=== PATIENT | male | born 1955 | race Caucasian/White ===

== ENCOUNTER 2020-04-28 11:04 | Inpatient (IN) | payer MEDICARE, OTHER ==
[~2020-04-28] VITALS: Ht 170.2 cm; Wt 78.7 kg
[2020-04-28] MEDS ORDERED: NORVASC5 MG ORAL (11:07)
[2020-04-28] MEDS ORDERED: LIPITOR40 MG ORAL (11:07)
[2020-04-28] MEDS ORDERED: LOSARTAN POTASS50 MG ORAL (11:07)
[2020-04-28] MEDS ORDERED: ASPIRIN EC81 MG ORAL (11:07)
[2020-04-28] MEDS ORDERED: NEURONTIN100 MG ORAL (11:07)
[2020-04-28] MEDS ORDERED: vitamin b12 PO (11:13)
[2020-04-28] MEDS ORDERED: ZINC SULFATE220 M1 ORAL (11:13)
[2020-04-28] MEDS ORDERED: FLOMAX0.4 MG ORAL (11:13)
[2020-04-28] MEDS ORDERED: HEPARIN SO5000 UNIT2 SUBQ (11:13)
[2020-04-28] MEDS ORDERED: VITAMIN C500 M1 ORAL (11:13)
[2020-04-28] MEDS ORDERED: VITAMIN D32400 UNIT/ PO (11:18)
[2020-04-28] MEDS ORDERED: PERIDEX15 ML MM (11:18)
[2020-04-28] MEDS ORDERED: CELEXA20 MG ORAL (11:21)
[2020-04-28] MEDS ORDERED: ZYPREXA10 MG ORAL (11:21)
[2020-04-28] MEDS ORDERED: ALBUTEROL SULF8.5 G1 INH (11:21)
[2020-04-28] MEDS ORDERED: HUMULIN R100 UNIT/1 SUBQ (11:21)
[2020-04-28] MEDS ORDERED: MELATONIN 3 MG1 EAC1 PO (11:21)
[2020-04-28] MEDS ORDERED: HUMALOG SS (11:23)
[2020-04-28 11:30] VITALS: BP 124/68
[2020-04-28] MEDS ORDERED: Pantoprazole Inj IV ONE (11:45)
--- NOTE | 2020-04-28 11:45 | NUR ---
ED Nurse Note: Pt BIBA from [facility] for GI bleed. Pt had coffee ground emesis yesterday. Pt is alert and ox4, bedrest. pt is set up on monitor. Abdomen is non-distended. Pt not currently actively vomiting.
--- NOTE | 2020-04-28 11:57 | Emergency Room Report ---
History of Present Illness General Chief Complaint: Gastrointestinal Bleed Source: Patient, Medical Record, EMS Present Illness HPI 64-year-old male presents for evaluation. Presents with coffee-ground emesis multiple times today. [facility] No active vomiting at this time. Patient does not recall vomiting. History of psych. Per EMS patient is also tested COVID positive this month. Patient has no symptoms. No reported fevers or chills. No runny nose congestion or cough. No blood in stool. No other aggravating relieving factors. 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 COVID-19 Screening: Positive COVID-19 COVID-19 Testing Source: Unknown Patient History Past Medical History: DM, HTN, GI bleed, psych hx Pertinent Family History: none Social History: Denies: smoking, alcohol use, drug use Immunizations: UTD Reviewed Nursing Documentation: PMH: Agreed; PSxH: Agreed Nursing Documentation-PMH Hx Hypertension: Yes Hx Diabetes: Yes Hx Gastrointestinal Problems: Yes - gastrointestinal hemorrhage History Of Psychiatric Problem: Yes - Schizophrenia, major depression Hx Neurological Problems: Yes - lack of coordination Review of Systems All Other Systems: negative except mentioned in HPI Physical Exam Vital Signs Date Time Temp Pulse Resp B/P (MAP) Pulse Ox O2 Delivery O2 Flow Rate FiO2 04/28/20 11:16 96.8 67 14 127/71 (89) 99 Room Air Sp02 EP Interpretation: reviewed, normal General Appearance: no apparent distress, alert, GCS 15, non-toxic Head: normocephalic, atraumatic Eyes: bilateral eye normal inspection, bilateral eye PERRL ENT: hearing grossly normal, normal pharynx, no angioedema, normal voice Neck: full range of motion, supple/symm/no masses Respiratory: chest non-tender, lungs clear, normal breath sounds, speaking full sentences Cardiovascular #1: regular rate, rhythm, no edema Cardiovascular #2: 2+ carotid (R), 2+ carotid (L), 2+ radial (R), 2+ radial (L) , 2+ dorsalis pedis (R), 2+ dorsalis pedis (L) Gastrointestinal: normal bowel sounds, non tender, soft, non-distended, no guarding, no rebound Rectal: deferred Genitourinary: normal inspection, no CVA tenderness Musculoskeletal: back normal, normal range of motion, gait/station normal, non- tender Neurologic: alert, motor strength/tone normal, oriented x3, sensory intact, responsive, speech normal Psychiatric: judgement/insight normal, memory normal, mood/affect normal, no suicidal/homicidal ideation Reflexes: 3+ bicep (R), 3+ bicep (L), 3+ tricep (R), 3+ tricep (L), 3+ knee (R) , 3+ knee (L) Skin: other - see nursing skin notes Lymphatic: no adenopathy Medical Decision Making Diagnostic Impression: Primary Impression: UGIB (upper gastrointestinal bleed) Additional Impressions: COVID-19 UTI (urinary tract infection) Qualified Codes: N39.0 - Urinary tract infection, site not specified ER Course Hospital Course 64-year-old male presents with coffee-ground emesis. COVID positive Differential diagnoses include: UGIB, LGIB, hemorrhoids Clinical course Patient placed on stretcher. panel monitor. In isolation. I wore full PPE. After initial history and physical I ordered labs, IV fluids, x-ray, Protonix , Zofran Labs - no leukocytosis, Hb/Hct stable. BUN/Cr elevated. UA + bacteria CXR - no focal consolidation Repeat COVID swab sent. Given antibiotics. Case discussed with Dr. Leal and he agreed to accept the patient to his service for further care and support I feel this is a highly complex case requiring extensive working including EKG/ Rhythm strip, Xray/CT/US, Blood/urine lab work, repeat exams while in ED, and administration of strong opiates/narcotics for pain control, admission to hospital or close patient follow up. Diagnosis - UGIB, COVID19, UTI Patient admitted to floor in serious condition Labs Test 04/28/20 11:52 04/28/20 11:59 04/28/20 12:03 White Blood Count 7.3 K/UL (4.8-10.8) Red Blood Count 4.57 M/UL (4.70-6.10) Hemoglobin 12.7 G/DL (14.2-18.0) Hematocrit 39.9 % (42.0-52.0) Mean Corpuscular Volume 87 FL (80-99) Mean Corpuscular Hemoglobin 27.8 PG (27.0-31.0) Mean Corpuscular Hemoglobin Concent 31.8 G/DL (32.0-36.0) Red Cell Distribution Width 13.8 % (11.6-14.8) Platelet Count 180 K/UL (150-450) Mean Platelet Volume 6.8 FL (6.5-10.1) Neutrophils (%) (Auto) 77.0 % (45.0-75.0) Lymphocytes (%) (Auto) 14.2 % (20.0-45.0) Monocytes (%) (Auto) 7.5 % (1.0-10.0) Eosinophils (%) (Auto) 0.1 % (0.0-3.0) Basophils (%) (Auto) 1.0 % (0.0-2.0) Prothrombin Time 12.0 SEC (9.30-11.50) Prothromb Time International Ratio 1.1 (0.9-1.1) Activated Partial Thromboplast Time 26 SEC (23-33) Sodium Level 141 MMOL/L (136-145) Potassium Level 4.6 MMOL/L (3.5-5.1) Chloride Level 103 MMOL/L (98-107) Carbon Dioxide Level 33 MMOL/L (21-32) Anion Gap 5 mmol/L (5-15) Blood Urea Nitrogen 40 mg/dL (7-18) Creatinine 2.1 MG/DL (0.55-1.30) Estimat Glomerular Filtration Rate 31.8 mL/min (>60) Glucose Level 159 MG/DL (74-106) Calcium Level 9.6 MG/DL (8.5-10.1) Total Bilirubin 0.9 MG/DL (0.2-1.0) Aspartate Amino Transf (AST/SGOT) 27 U/L (15-37) Alanine Aminotransferase (ALT/SGPT) 32 U/L (12-78) Alkaline Phosphatase 69 U/L (46-116) Total Protein 7.7 G/DL (6.4-8.2) Albumin 3.5 G/DL (3.4-5.0) Globulin 4.2 g/dL Albumin/Globulin Ratio 0.8 (1.0-2.7) Lipase 302 U/L (73-393) Lactic Acid Level 1.50 mmol/L (0.4-2.0) Urine Color Yellow Urine Appearance Slightly cloudy Urine pH 6.5 (4.5-8.0) Urine Specific [place] 1.010 (1.005-1.035) Urine Protein 1+ (NEGATIVE) Urine Glucose (UA) Negative (NEGATIVE) Urine Ketones Negative (NEGATIVE) Urine Blood 1+ (NEGATIVE) Urine Nitrite Negative (NEGATIVE) Urine Bilirubin Negative (NEGATIVE) Urine Urobilinogen 4 MG/DL (0.0-1.0) Urine Leukocyte Esterase 3+ (NEGATIVE) Urine RBC 2-4 /HPF (0 - 0) Urine WBC 60-80 /HPF (0 - 0) Urine Squamous Epithelial Cells Occasional /LPF Urine Bacteria Occasional /HPF (NONE) Chest X-Ray Diagnostic Results Chest X-Ray Diagnostic Results : Chest X-Ray Ordered: Yes # of Views/Limited/Complete: 1 View Indication: Other EP Interpretation: Yes Interpretation: no consolidation, no effusion, no pneumothorax, no acute cardiopulmonary disease Impression: No acute disease Electronically Signed by: Electronically signed by Bassam Gudino MD Last Vital Signs Date Time Temp Pulse Resp B/P (MAP) Pulse Ox O2 Delivery O2 Flow Rate FiO2 04/28/20 11:16 96.8 67 14 127/71 (89) 99 Room Air Status: improved Disposition: ADMITTED INPATIENT Condition: Serious Bassam Gudino MD Apr 28, 2020 11:57
[2020-04-28 12:12] LABS: EOSINOPHILS % (AUTO) 0.1 % (0.0-3.0); HEMATOCRIT 39.9 % (42.0-52.0); HEMOGLOBIN 12.7 G/DL (14.2-18.0); LYMPHOCYTES % (AUTO) 14.2 % (20.0-45.0); MEAN CORPUSCULAR VOLUME 87 FL (80-99); MONOCYTES % (AUTO) 7.5 % (1.0-10.0); PLATELET COUNT 180 K/UL (150-450); RED BLOOD COUNT 4.57 M/UL (4.70-6.10); RED CELL DISTRIBUTION WIDTH 13.8 % (11.6-14.8); WHITE BLOOD COUNT 7.3 K/UL (4.8-10.8)
[2020-04-28 12:22] LABS: INR 1.1 (0.9-1.1)
[2020-04-28 12:27] LABS: ANION GAP 5 mmol/L (5-15); BLOOD UREA NITROGEN 40 mg/dL (7-18); CALCIUM 9.6 MG/DL (8.5-10.1); CARBON DIOXIDE 33 MMOL/L (21-32); CHLORIDE 103 MMOL/L (98-107); CREATININE 2.1 MG/DL (0.55-1.30); POTASSIUM 4.6 MMOL/L (3.5-5.1); SODIUM 141 MMOL/L (136-145)
[2020-04-28 12:42] LABS: ALANINE AMINOTRANSFERASE 32 U/L (12-78); ALBUMIN 3.5 G/DL (3.4-5.0); ALBUMIN/GLOBULIN RATIO 0.8 (1.0-2.7); ALKALINE PHOSPHATASE 69 U/L (46-116); ASPARTATE AMINO TRANSFERASE 27 U/L (15-37); BILIRUBIN,TOTAL 0.9 MG/DL (0.2-1.0)
[2020-04-28 12:57] LABS: APPEARANCE,URINE SLIGHTLY CLOUDY; BILIRUBIN, URINE NEGATIVE (NEGATIVE); COLOR,URINE YELLOW; GLUCOSE, URINE (UA) NEGATIVE (NEGATIVE); KETONES,URINE NEGATIVE (NEGATIVE); LEUKOCYTE ESTERASE ,URINE 3+ (NEGATIVE); NITRITE,URINE NEGATIVE (NEGATIVE); PH,URINE 6.5 (4.5-8.0); PROTEIN,URINE 1+ (NEGATIVE); UROBILINOGEN,URINE 4 MG/DL (0.0-1.0)
[2020-04-28 13:19] VITALS: BP 122/67
[2020-04-28] MEDS ORDERED: cefTRIAXone 1 GM in NS 55 ML IVPB ONE (13:30)
--- NOTE | 2020-04-28 13:39 | Diagnostic Imaging Report ---
Procedure: XRAY Chest 1v Reason for study: Reason For Exam: COUGH Comparison films: None. FINDINGS: A single one view chest is obtained. Vascularity is normal. The lung steiner are clear bilaterally. Cardiac and mediastinal silhouette are within normal limits. CP angles are sharp. The bony thorax appear unremarkable. IMPRESSION: NO ACUTE CARDIOPULMONARY DISEASE.
--- NOTE | 2020-04-28 14:00 | NUR ---
NURSE NOTES: patient was admitted to room 420-2 under care dx of GI bleeding. episode of bloody emesis at detention. no respiratory distress noted on room air. no pain at this time. A&Ox4. verbally responsive. IV on right hand. intact. Covid swab done at ER. PUI contact/droplet isolation. head to toe assessment done. redness on sacra and perianal area. incontinent both B&B. wound picture taken and uploaded. skin scratches with dry scab both lower extremities. notified Dr. Leal for new admission. will f/u for new admission orders. bed in the lowest position and locked. call light within reach. will continue to provide plan of care.
--- NOTE | 2020-04-28 15:31 | NUR ---
ED Nurse Note: Report given to Manohar CHRISTENSEN.
[2020-04-28 15:33] VITALS: BP 130/64
--- NOTE | 2020-04-28 15:40 | NUR ---
ED Nurse Note: Pt transferred to [facility] floor with all belongings. No acute distress.
--- NOTE | 2020-04-28 16:26 | Consultation ---
Consult Note Consult Note I am asked to evaluate the patient at the request of Dr. Leal for renal failure 64-year-old male presents for evaluation. Presents with coffee-ground emesis multiple times today. Coming from [facility] facility. No active vomiting at this time. Patient does not recall vomiting. History of psych. Per EMS patient is also tested COVID positive this month. Patient has no symptoms. No reported fevers or chills. No runny nose congestion or cough. No blood in stool. No other aggravating relieving factors. 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 COVID-19 Screening: Positive COVID-19 COVID-19 Testing Source: Unknown Past Medical History: DM, HTN, GI bleed, psych hx Hx Hypertension: Yes Hx Diabetes: Yes Hx Gastrointestinal Problems: Yes - gastrointestinal hemorrhage History Of Psychiatric Problem: Yes - Schizophrenia, major depression Hx Neurological Problems: Yes - lack of coordination Patient interviewed, poor historian Examined Data reviewed Assessment/Plan Renal failure most likely acute on chronic Contributors to chronic kidney disease are diabetes mellitus and hypertension Patient is being admitted with GI bleed Evidence of UTI COVID-19 positive Hypertension Diabetes mellitus History of psych disease N.p.o. except medication Monitor for further upper GI bleed Monitor H&H IV Protonix Slow hydration Keep the blood pressure blood sugar in check Avoid nephrotoxic's Monitor renal parameters Urine studies Antibiotics for UTI Per orders Christophe Mccray MD Apr 28, 2020 16:26
[2020-04-28] MEDS ORDERED: HydrALAZINE 25mg tab ORAL PRN (16:45)
[2020-04-28] MEDS: D5 1/2NS 1,000 ML IV SCH (17:44)
[2020-04-28] MEDS: Docusate 100mg cap ORAL SCH (17:45)
--- NOTE | 2020-04-28 19:35 | NUR ---
HAND-OFF: Report given to AMPARO Ghotra..
--- NOTE | 2020-04-28 19:59 | NUR ---
NURSE NOTES: Received report from AMPARO Villela. AAO x 3, on room air, using urinal. Pt on NPO. IV site intact and running IVF. PUI Covid precaution maintained. Bed locked, lowest position, alarm on, side rails up, call light within reach. Will continue to monitor.
[2020-04-28 20:00] VITALS: BP 149/79
[2020-04-28] MEDS: Atorvastatin 20mg tab ORAL SCH (20:30)
[2020-04-28] MEDS: Pantoprazole Inj IVP SCH (20:30)
[2020-04-28] MEDS: Tamsulosin 0.4mg cap ORAL SCH (20:30)
--- NOTE | 2020-04-28 21:37 | NUR ---
NURSE NOTES: Pt has fever 100.5F. Notified Dr. Alec Stock and Dr. Leal. Received order Tylenol 500mg po q4h prn fever 100.5F
[2020-04-28] MEDS ORDERED: Acetaminophen 500mg (ES) tab ORAL PRN (21:45)
--- NOTE | 2020-04-28 22:00 | NUR ---
NURSE NOTES: Urine collect for random sodium and sent to the lab
[2020-04-29] VITALS: BP 138/76
[2020-04-29] MEDS: D5 1/2NS 1,000 ML IV SCH ×2 (03:24→17:25)
[2020-04-29 04:00] VITALS: BP 138/76
[2020-04-29 06:21] LABS: BASOPHILS % (AUTO) 0.5 % (0.0-2.0); EOSINOPHILS % (AUTO) 0.1 % (0.0-3.0); HEMATOCRIT 36.8 % (42.0-52.0); HEMOGLOBIN 11.6 G/DL (14.2-18.0); LYMPHOCYTES % (AUTO) 15.8 % (20.0-45.0); MEAN CORPUSCULAR VOLUME 87 FL (80-99); MONOCYTES % (AUTO) 10.1 % (1.0-10.0); NEUTROPHILS % (AUTO) 73.5 % (45.0-75.0); PLATELET COUNT 134 K/UL (150-450); RED BLOOD COUNT 4.22 M/UL (4.70-6.10); RED CELL DISTRIBUTION WIDTH 14.1 % (11.6-14.8); WHITE BLOOD COUNT 6.5 K/UL (4.8-10.8)
--- NOTE | 2020-04-29 07:09 | NUR ---
NURSE NOTES: Received covid swab positiveres Addendum: 04/29/20 at 0710 by SIMON CALDERON RN RN positive result from [facility].
--- NOTE | 2020-04-29 07:10 | NUR ---
HAND-OFF: Report given to AMPARO Alonzo. Pt has no vomiting episode during the overnight babysitter.
[2020-04-29 07:32] LABS: ALANINE AMINOTRANSFERASE 26 U/L (12-78); ALBUMIN/GLOBULIN RATIO 0.8 (1.0-2.7); ALKALINE PHOSPHATASE 60 U/L (46-116); ANION GAP 7 mmol/L (5-15); ASPARTATE AMINO TRANSFERASE 23 U/L (15-37); BILIRUBIN,TOTAL 0.8 MG/DL (0.2-1.0); BLOOD UREA NITROGEN 29 mg/dL (7-18); CALCIUM 8.9 MG/DL (8.5-10.1); CARBON DIOXIDE 29 MMOL/L (21-32); CHLORIDE 105 MMOL/L (98-107); CHOLESTEROL 91 MG/DL (< 200); CREATINE KINASE 38 U/L (26-308); CREATININE 1.7 MG/DL (0.55-1.30); FERRITIN 158 NG/ML (8-388); GAMMA GLUTAMYL TRANSPEPTIDASE 10 U/L (5-85); HDL CHOLESTEROL 29 MG/DL (40-60); PHOSPHORUS 2.8 MG/DL (2.5-4.9); POTASSIUM 4.6 MMOL/L (3.5-5.1); SODIUM 141 MMOL/L (136-145); TRIGLYCERIDES 111 MG/DL (30-150)
[2020-04-29 07:52] LABS: % IRON SATURATION 20 % (15-50); IRON 43 ug/dL (50-175); TOTAL IRON BINDING CAPACITY 211 ug/dL (250-450)
--- NOTE | 2020-04-29 07:58 | NUR ---
NURSE NOTES: Received report from AMPARO Ghotra. Patient is AAO x 3, bedrest, on room air, using urinal. Pt on NPO except ice chips and med. IV site intact and running IVF. PUI Covid precaution maintained. Bed locked, lowest position, alarm on, side rails up, call light within reach. Will continue to monitor.
[2020-04-29 08:00] VITALS: BP 134/78
[2020-04-29] MEDS: Pantoprazole Inj IVP SCH ×2 (08:59→21:05)
[2020-04-29] MEDS: Docusate 100mg cap ORAL SCH ×3 (08:59→17:25)
[2020-04-29] MEDS: cefTRIAXone 1 GM in D5W 55 ML IVPB SCH (09:03)
--- NOTE | 2020-04-29 09:35 | Consultation ---
History of Present Illness General Chief Complaint: Gastrointestinal Bleed Present Illness Allergies: Coded Allergies: No Known Allergies (Unverified , 04/28/20) Medication History Scheduled Albuterol Sulfate* (Albuterol Sulfate Hfa*), 2 PUFF INH Q4H, (Reported) Amlodipine Besylate (Norvasc), 5 MG ORAL DAILY, (Reported) Ascorbic Acid* (Vitamin C*), 1,000 MG ORAL DAILY, (Reported) Aspirin Ec* (Aspirin Ec*), 81 MG ORAL DAILY, (Reported) Atorvastatin Calcium* (Lipitor*), 40 MG ORAL BEDTIME, (Reported) Chlorhexidine Gluconate (Peridex), 15 ML MM BID, (Reported) Cholecalciferol (Vitamin D3) (Vitamin D3), 5,000 UNIT PO DAILY, (Reported) Citalopram Hydrobromide* (Celexa*), 20 MG ORAL DAILY, (Reported) Gabapentin* (Neurontin*), 100 MG ORAL BID, (Reported) Heparin Sod (Porcine) (Heparin Sodium*), 5,000 UNITS SUBQ EVERY 12 HOURS, ( Reported) Losartan Potassium* (Losartan Potassium*), 50 MG ORAL DAILY, (Reported) Melatonin/Pyridoxine HCl (B6) (Melatonin 3 mg Tablet), 1 EACH PO QHS, (Reported) Olanzapine* (Zyprexa*), 10 MG ORAL QHS, (Reported) Tamsulosin HCl (Flomax), 0.4 MG ORAL QHS, (Reported) Zinc Sulfate (Zinc Sulfate*), 220 MG ORAL DAILY, (Reported) [vitamin b12], 1,000 MG PO DAILY, (Reported) Miscellaneous Medications [humalog ss], (Reported) Discontinued Medications Insulin Regular, Human (Humulin R), 0 SUBQ, (Reported) Discontinued Reason: Medication dose changed Patient History Healthcare decision maker Resuscitation status Advanced Directive on File No Physical Exam Last 24 Hour Vital Signs Date Time Temp Pulse Resp B/P (MAP) Pulse Ox O2 Delivery O2 Flow Rate FiO2 04/29/20 08:59 64 134/78 04/29/20 08:00 98.1 64 20 134/78 (96) 94 04/29/20 04:00 98.2 66 20 138/76 (96) 92 04/29/20 00:00 99.8 72 20 138/76 (96) 94 04/28/20 22:12 99.8 04/28/20 21:00 Room Air 04/28/20 20:00 100.4 77 22 149/79 (102) 93 04/28/20 18:45 Room Air 2.0 04/28/20 15:40 98.2 85 19 124/75 98 Nasal Cannula 2.0 04/28/20 15:33 96.8 82 16 130/64 98 Nasal Cannula 2.0 04/28/20 13:19 96.8 83 17 122/67 98 Nasal Cannula 2.0 04/28/20 11:30 96.8 76 18 124/68 99 Nasal Cannula 2.0 04/28/20 11:30 76 18 Nasal Cannula 2.0 99 04/28/20 11:16 96.8 67 14 127/71 (89) 99 Room Air Intake and Output 04/28/20 04/29/20 19:00 07:00 Intake Total 75 ml 825 ml Balance 75 ml 825 ml Intake Oral 0 ml IV Total 75 ml 825 ml # Voids 2 3 # Bowel Movements 4 1 Laboratory Tests Test 04/28/20 11:52 04/28/20 11:59 04/28/20 12:03 04/28/20 21:30 White Blood Count 7.3 K/UL (4.8-10.8) Red Blood Count 4.57 M/UL (4.70-6.10) L Hemoglobin 12.7 G/DL (14.2-18.0) L Hematocrit 39.9 % (42.0-52.0) L Mean Corpuscular Volume 87 FL (80-99) Mean Corpuscular Hemoglobin 27.8 PG (27.0-31.0) Mean Corpuscular Hemoglobin Concent 31.8 G/DL (32.0-36.0) L Red Cell Distribution Width 13.8 % (11.6-14.8) Platelet Count 180 K/UL (150-450) Mean Platelet Volume 6.8 FL (6.5-10.1) Neutrophils (%) (Auto) 77.0 % (45.0-75.0) H Lymphocytes (%) (Auto) 14.2 % (20.0-45.0) L Monocytes (%) (Auto) 7.5 % (1.0-10.0) Eosinophils (%) (Auto) 0.1 % (0.0-3.0) Basophils (%) (Auto) 1.0 % (0.0-2.0) Prothrombin Time 12.0 SEC (9.30-11.50) H Prothromb Time International Ratio 1.1 (0.9-1.1) Activated Partial Thromboplast Time 26 SEC (23-33) Sodium Level 141 MMOL/L (136-145) Potassium Level 4.6 MMOL/L (3.5-5.1) Chloride Level 103 MMOL/L (98-107) Carbon Dioxide Level 33 MMOL/L (21-32) H Anion Gap 5 mmol/L (5-15) Blood Urea Nitrogen 40 mg/dL (7-18) H Creatinine 2.1 MG/DL (0.55-1.30) H Estimat Glomerular Filtration Rate 31.8 mL/min (>60) Glucose Level 159 MG/DL (74-106) H Calcium Level 9.6 MG/DL (8.5-10.1) Total Bilirubin 0.9 MG/DL (0.2-1.0) Aspartate Amino Transf (AST/SGOT) 27 U/L (15-37) Alanine Aminotransferase (ALT/SGPT) 32 U/L (12-78) Alkaline Phosphatase 69 U/L (46-116) Total Protein 7.7 G/DL (6.4-8.2) Albumin 3.5 G/DL (3.4-5.0) Globulin 4.2 g/dL Albumin/Globulin Ratio 0.8 (1.0-2.7) L Lipase 302 U/L (73-393) Lactic Acid Level 1.50 mmol/L (0.4-2.0) Urine Color Yellow Urine Appearance Slightly cloudy Urine pH 6.5 (4.5-8.0) Urine Specific [place] 1.010 (1.005-1.035) Urine Protein 1+ (NEGATIVE) H Urine Glucose (UA) Negative (NEGATIVE) Urine Ketones Negative (NEGATIVE) Urine Blood 1+ (NEGATIVE) H Urine Nitrite Negative (NEGATIVE) Urine Bilirubin Negative (NEGATIVE) Urine Urobilinogen 4 MG/DL (0.0-1.0) H Urine Leukocyte Esterase 3+ (NEGATIVE) H Urine RBC 2-4 /HPF (0 - 0) H Urine WBC 60-80 /HPF (0 - 0) H Urine Squamous Epithelial Cells Occasional /LPF Urine Bacteria Occasional /HPF (NONE) Urine Random Sodium 119 mmol/L (20-110) H Test 04/29/20 04:00 White Blood Count 6.5 K/UL (4.8-10.8) Red Blood Count 4.22 M/UL (4.70-6.10) L Hemoglobin 11.6 G/DL (14.2-18.0) L Hematocrit 36.8 % (42.0-52.0) L Mean Corpuscular Volume 87 FL (80-99) Mean Corpuscular Hemoglobin 27.4 PG (27.0-31.0) Mean Corpuscular Hemoglobin Concent 31.4 G/DL (32.0-36.0) L Red Cell Distribution Width 14.1 % (11.6-14.8) Platelet Count 134 K/UL (150-450) L Mean Platelet Volume 6.0 FL (6.5-10.1) L Neutrophils (%) (Auto) 73.5 % (45.0-75.0) Lymphocytes (%) (Auto) 15.8 % (20.0-45.0) L Monocytes (%) (Auto) 10.1 % (1.0-10.0) H Eosinophils (%) (Auto) 0.1 % (0.0-3.0) Basophils (%) (Auto) 0.5 % (0.0-2.0) Sodium Level 141 MMOL/L (136-145) Potassium Level 4.6 MMOL/L (3.5-5.1) Chloride Level 105 MMOL/L (98-107) Carbon Dioxide Level 29 MMOL/L (21-32) Anion Gap 7 mmol/L (5-15) Blood Urea Nitrogen 29 mg/dL (7-18) H Creatinine 1.7 MG/DL (0.55-1.30) H Estimat Glomerular Filtration Rate 40.5 mL/min (>60) Glucose Level 72 MG/DL (74-106) L Hemoglobin A1c 6.7 % (4.3-6.0) H Uric Acid 6.4 MG/DL (2.6-7.2) Calcium Level 8.9 MG/DL (8.5-10.1) Phosphorus Level 2.8 MG/DL (2.5-4.9) Magnesium Level 1.3 MG/DL (1.8-2.4) L Iron Level 43 ug/dL (50-175) L Total Iron Binding Capacity 211 ug/dL (250-450) L Percent Iron Saturation 20 % (15-50) Unsaturated Iron Binding 168 ug/dL (112-346) Ferritin 158 NG/ML (8-388) Total Bilirubin 0.8 MG/DL (0.2-1.0) Gamma Glutamyl Transpeptidase 10 U/L (5-85) Aspartate Amino Transf (AST/SGOT) 23 U/L (15-37) Alanine Aminotransferase (ALT/SGPT) 26 U/L (12-78) Alkaline Phosphatase 60 U/L (46-116) Total Creatine Kinase 38 U/L (26-308) Troponin I 0.034 ng/mL (0.000-0.056) C-Reactive Protein, Quantitative 3.6 mg/dL (0.00-0.90) H Pro-B-Type Natriuretic Peptide 419 pg/mL (0-125) H Total Protein 6.6 G/DL (6.4-8.2) Albumin 3.0 G/DL (3.4-5.0) L Globulin 3.6 g/dL Albumin/Globulin Ratio 0.8 (1.0-2.7) L Triglycerides Level 111 MG/DL (30-150) Cholesterol Level 91 MG/DL (< 200) LDL Cholesterol 44 mg/dL (<100) HDL Cholesterol 29 MG/DL (40-60) L Cholesterol/HDL Ratio 3.1 (3.3-4.4) L Vitamin B12 Level 295 PG/ML (193-986) Folate 6.1 NG/ML (8.6-58.9) L Thyroid Stimulating Hormone (TSH) 0.121 uiU/mL (0.358-3.740) Microbiology Date/Time Source Procedure Growth Status 04/28/20 12:00 Nasopharynx Coronavirus COVID-19 PCR ([facility]) - Final Complete 04/28/20 12:03 Urine,Clean Catch Urine Culture - Preliminary NO GROWTH Resulted 04/28/20 14:10 Rectum Unverified Height (Feet): 5 Height (Inches): 7.00 Weight (Pounds): 173 Medications Current Medications Medications (Trade) Dose Ordered Sig/Jey Route PRN Reason Start Time Stop Time Status Last Admin Dose Admin Acetaminophen (Tylenol) 500 mg Q4H PRN ORAL Temp >100.5 04/28/20 21:45 05/28/20 21:44 04/28/20 21:42 Amlodipine Besylate (Norvasc) 5 mg DAILY ORAL 04/29/20 09:00 05/29/20 08:59 04/29/20 08:59 Atorvastatin Calcium (Lipitor) 40 mg BEDTIME ORAL 04/28/20 21:00 07/27/20 20:59 04/28/20 20:30 Ceftriaxone Sodium 1 gm/ Dextrose 55 ml @ 110 mls/hr Q24H IVPB 04/29/20 09:00 05/06/20 08:59 04/29/20 09:03 Dextrose/Sodium Chloride 1,000 ml @ 75 mls/hr [id number] IV 04/28/20 16:45 05/28/20 16:44 04/29/20 03:24 Docusate Sodium (Colace) 100 mg THREE TIMES A DAY ORAL 04/28/20 18:00 05/28/20 17:59 04/29/20 08:59 Hydralazine HCl (Apresoline) 25 mg Q4H PRN ORAL bp over 160 syst 04/28/20 16:45 07/27/20 16:44 Ondansetron HCl (Zofran) 4 mg Q6H PRN IVP Nausea & Vomiting 04/28/20 16:35 05/28/20 16:34 Pantoprazole (Protonix) 40 mg EVERY 12 HOURS IVP 04/28/20 21:00 05/28/20 20:59 04/29/20 08:59 Tamsulosin HCl (Flomax) 0.4 mg QHS ORAL 04/28/20 21:00 05/28/20 20:59 04/28/20 20:30 Assessment/Plan Assessment/Plan: Hematology Consultation REQ : kathy Diaz RFC: Low platelets, anemia DOS 04/29/2020 ID 64-year-old male presents for evaluation. Presents with coffee-ground emesis multiple times prior to admission. Coming from residential facility. No active vomiting at this time. Patient does not recall vomiting. History of psych. Per EMS patient is also tested COVID positive this month. Patient has no symptoms. No reported fevers or chills. No runny nose congestion or cough. No blood in stool. No other aggravating relieving factors. No other associated symptoms Noted to have a plt count drop to 134, also anemic and heme was consulted for eval and rx. 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 COVID-19 Screening: Positive COVID-19 COVID-19 Testing Source: Unknown Patient History Past Medical History: DM, HTN, GI bleed, psych hx Pertinent Family History: none Social History: Denies: smoking, alcohol use, drug use Immunizations: UTD Reviewed Nursing Documentation: PMH: Agreed; PSxH: Agreed Nursing Documentation-PMH Hx Hypertension: Yes Hx Diabetes: Yes Hx Gastrointestinal Problems: Yes - gastrointestinal hemorrhage History Of Psychiatric Problem: Yes - Schizophrenia, major depression Hx Neurological Problems: Yes - lack of coordination ROS (review of systems): Constitutional: No fever, no chills, no night sweats, no fatigue Skin: No rashes, lumps, itchiness, dryness HEENT: No AKERS, ear ache, visual changes, double vision, nosebleeds Breasts: No lumps, pain, discharge Pulmonary: No cough, sputum, shortness of breath, coughing up blood Cardiovascular: No chest pain, tightness, palpitations, syncope, PND GI: No nausea, vomiting, diarrhea, melena, hematochezia, change in appetite, : No dysuria, frequency, urgency, urinary incontinence, foamy urine Musculoskeletal: No joint swelling or muscle pain, trauma, back pain Neurologic: No dizziness, fainting, seizures, changes in smell or taste Psychiatric: No nervousness, stress, or depression, anxiety, hallucinations Endocrine: No weight change, heat or cold intolerance, tremor, insomnia Physical Exam: Vitals: reviewed General: NAD HEENT: nc, at Neck: supple Chest: clear breath sounds bilaterally Cardiovascular: RRR, no s3, s4 Abdomen: soft, nontender, nd Extremities: no cce, normal range of motion Neuro: alert and oriented Labs noted CXR - no focal consolidation Assessment and recs # Anemia due to underlying GI bleed -- patient presents with occult+ bleeding --> as per GI eval, may need endoscopy --> has been started on ppi --> cea has been ordered --> Hgb goal >7. Transfuse prn. --> Will sign consent if necessary --> Epogen or iron at this time is not particularly indicated --> Consider octreotide gtt as per gi eval --> hgb 11 # Thrombocytopenia - potential causes multifactorial, evaluate liver and viral etiologies to begin, may be due to covid19++ --> Hep panel and HIV ordered --> US abd to evaluate for cirrhosis and hsm ordered --> Peripheral smear ordered to evaluate for blasts /schistocytes --> abx and other meds have been reviewed --> ok for ppx if plt >50k w/ either heparin or lovenox --> Transfuse if Plt < 20k and fever, or if Plt < 10k without fever -> plt trend 180-->134 # COVID-19 --> iso as per id --> abx prn # Uti as per id --> abx # Renal failure most likely acute on chronic --> per Dr. Mccray # Hypertension # Diabetes mellitus # History of psych disease The timing of this note does not necessarily reflect the time of the patient was seen. Greatly appreciate consultation. Tony Melo MD Apr 29, 2020 09:35
--- NOTE | 2020-04-29 10:09 | NUR ---
NURSE NOTES: RN LEFT MESSAGE FOR DR. Will GUILLEN AND MADE AWARE OF PATIENTS COVID SWAB RESULT
--- NOTE | 2020-04-29 10:25 | NUR ---
NURSE NOTES: RN CONTACTED DR. ALCARAZ AND MADE AWARE OF RECENT DARK COLORED STOOL. RN ALSO INFORMED REGARDING HGB AND HCT TRENDING DOWN. AWAITING FURTHER ORDER
[2020-04-29 12:00] VITALS: BP 164/98
--- NOTE | 2020-04-29 12:20 | Nephrology Progress Note ---
Assessment/Plan Problem List: (1) DESIREE (acute kidney injury) Assessment: Serum creatinine is lowering (2) Renal failure (ARF), acute on chronic (3) COVID-19 (4) Dehydration (5) Anemia Assessment Renal failure most likely acute on chronic Contributors to chronic kidney disease are diabetes mellitus and hypertension Patient is being admitted with GI bleed Evidence of UTI COVID-19 positive Hypertension Diabetes mellitus History of psych disease Plan N.p.o. except medication, until cleared by GI. Monitor for further upper GI bleed, Monitor H&H. Magnesium sulfate supplement intravenously 4 g given today IV Protonix Slow hydration Keep the blood pressure blood sugar in check Avoid nephrotoxic's Monitor renal parameters Urine studies Antibiotics for UTI Per orders Objective Objective Last 24 Hour Vital Signs Date Time Temp Pulse Resp B/P (MAP) Pulse Ox O2 Delivery O2 Flow Rate FiO2 04/29/20 09:00 Room Air 04/29/20 08:59 64 134/78 04/29/20 08:00 98.1 64 20 134/78 (96) 94 04/29/20 04:00 98.2 66 20 138/76 (96) 92 04/29/20 00:00 99.8 72 20 138/76 (96) 94 04/28/20 22:12 99.8 04/28/20 21:00 Room Air 04/28/20 20:00 100.4 77 22 149/79 (102) 93 04/28/20 18:45 Room Air 2.0 04/28/20 15:40 98.2 85 19 124/75 98 Nasal Cannula 2.0 04/28/20 15:33 96.8 82 16 130/64 98 Nasal Cannula 2.0 04/28/20 13:19 96.8 83 17 122/67 98 Nasal Cannula 2.0 Intake and Output 04/28/20 04/29/20 19:00 07:00 Intake Total 75 ml 825 ml Balance 75 ml 825 ml Intake Oral 0 ml IV Total 75 ml 825 ml # Voids 2 3 # Bowel Movements 4 1 Laboratory Tests 04/28/20 21:30: Urine Random Sodium 119H 04/29/20 04:00: White Blood Count 6.5, Red Blood Count 4.22L, Hemoglobin 11.6L, Hematocrit 36.8L , Mean Corpuscular Volume 87, Mean Corpuscular Hemoglobin 27.4, Mean Corpuscular Hemoglobin Concent 31.4L, Red Cell Distribution Width 14.1, Platelet Count 134L, Mean Platelet Volume 6.0L, Neutrophils (%) (Auto) 73.5, Lymphocytes (%) (Auto) 15.8L, Monocytes (%) (Auto) 10.1H, Eosinophils (%) (Auto ) 0.1, Basophils (%) (Auto) 0.5, Sodium Level 141, Potassium Level 4.6, Chloride Level 105, Carbon Dioxide Level 29, Anion Gap 7, Blood Urea Nitrogen 29H, Creatinine 1.7H, Estimat Glomerular Filtration Rate 40.5, Glucose Level 72L , Hemoglobin A1c 6.7H, Uric Acid 6.4, Calcium Level 8.9, Phosphorus Level 2.8, Magnesium Level 1.3L, Iron Level 43L, Total Iron Binding Capacity 211L, Percent Iron Saturation 20, Unsaturated Iron Binding 168, Ferritin 158, Total Bilirubin 0.8, Gamma Glutamyl Transpeptidase 10, Aspartate Amino Transf (AST/SGOT) 23, Alanine Aminotransferase (ALT/SGPT) 26, Alkaline Phosphatase 60, Total Creatine Kinase 38, Troponin I 0.034, C-Reactive Protein, Quantitative 3.6H, Pro-B-Type Natriuretic Peptide 419H, Total Protein 6.6, Albumin 3.0L, Globulin 3.6, Albumin /Globulin Ratio 0.8L, Triglycerides Level 111, Cholesterol Level 91, LDL Cholesterol 44, HDL Cholesterol 29L, Cholesterol/HDL Ratio 3.1L, Vitamin B12 Level 295, Folate 6.1L, Thyroid Stimulating Hormone (TSH) 0.121L, Hepatitis A IgM Antibody [Pending], Hepatitis B Surface Antigen [Pending], Hepatitis B Core IgM Antibody [Pending], Hepatitis C Antibody [Pending], HIV (1&2) Antibody Rapid Negative Height (Feet): 5 Height (Inches): 7.00 Weight (Pounds): 173 Christophe Mccray MD Apr 29, 2020 12:20
--- NOTE | 2020-04-29 12:27 | NUR ---
CASE MANAGEMENT:INITIAL REVIEW 64 YR OLD MALE BIBA FROM [facility] CC;GI BLEED SI;GI BLEED. UTI. SUSPECTED COVID-19. 96.8 83 18 127/71 98% 2L NC FIO2 @ 99% CO2 33 BUN 40 CR 1.4 BG 159 PT 12.0 UA+ PROTEIN, BLOOD, UROBILI, LE, RBC, WBC, RANDOM VY=[id number] COVID-19 PCR ~ DETECTED CXR ~ NO ACUTE DISEASE IS;IVF NS BOLUS ZOFRAN IV ONCE PROTONIX IV ONCE ROCEPHIN IV ONCE PATIENT ADMITTED TO [facility] STATUS DCP;PATIENT IS FROM [facility]
--- NOTE | 2020-04-29 14:32 | NUR ---
NURSE NOTES:WOUND CARE NOTES:Pt presented on admission with Incontinence Associated Dermatitis. Scrotum and Buttocks with non-blanching erythema, Jayne-anal skin erosion secondary to frequent watery stools. Pt is also incontinent of Bladder. Both heels are boggy with non-Blanchable erythema,but are non-tender when palpated individually. Tx.Plan: Apply Moisture Barrier Paste to scrotum and Buttocks with each Incontinence care. Apply Optifoam drsg to Sacrum. Change every 3 days and prn. Apply Cavilon Skin Barrier to Malleoli and Both heels. Cover each Malleoli and Each heel with Optifoam drsgs. Change every 7 days and prn. Reposition at least every 2hours or as tolerated. Off-load heels with Pillow.
[2020-04-29 15:54] VITALS: BP 119/62
--- NOTE | 2020-04-29 17:45 | Consultation ---
DATE OF CONSULTATION: 04/29/2020 GASTROENTEROLOGY CONSULTATION CONSULTING PHYSICIAN: Hossein Friedman MD CHIEF COMPLAINT: GI bleeding. HISTORY OF PRESENT ILLNESS: This is a 64-year-old male who was recently diagnosed with COVID positive pneumonia, was admitted to the hospital with coffee-ground emesis. PAST MEDICAL HISTORY: Significant for, 1. History of vitamin D deficiency. 2. COVID positive pneumonia. 3. Asthma. 4. renal disease. 5. Diabetes. 6. Schizophrenia. ALLERGIES: No known drug allergies. MEDICATIONS: Please see medication reconciliation list. SOCIAL HISTORY: The patient denies any recent tobacco, alcohol, or drug abuse. FAMILY HISTORY: No family history of GI malignancies. REVIEW OF SYSTEMS: A 10-point review of systems was performed and pertinent positives in HPI. PHYSICAL EXAMINATION: VITAL SIGNS: Temperature 98.1, pulse 90, respirations 19, blood pressure 164/98. HEENT: Normocephalic and atraumatic. Sclerae are anicteric. NECK: Supple. No evidence of obvious lymphadenopathy. CARDIOVASCULAR: Regular rate and rhythm. Plus S1-S2. LUNGS: Decreased breath sounds bilaterally based on supine exam. ABDOMEN: Soft, nontender. No rebound. No guarding. No peritoneal sign. EXTREMITIES: No cyanosis. No clubbing. No edema. LABORATORY DATA: White count 6.5, hemoglobin 11.6, hematocrit 36.8, platelet count 134,000. Chem-7, sodium 141, potassium 4.6, BUN 29, creatinine 1.7. Liver function grossly normal. INR is 1.1. ASSESSMENT AND PLAN: A 64-year-old male with coffee-ground emesis, relatively stable H and H. Given the COVID-positive pneumonia, we have to hold off on doing endoscopy until he comes off of isolation unless there is medical emergency. Meanwhile, we are going to place the patient on Protonix 40 mg q.12 h. tomorrow. Transfuse to keep hemoglobin above 7. Follow stool OB. Endoscopy when the patient is off of isolation. Hossein Friedman M.D. DR: FRANK JOB#: [id number] CC:
[2020-04-29] MEDS ORDERED: Acetaminophen 500mg (ES) tab ORAL PRN (17:54)
--- NOTE | 2020-04-29 19:00 | Consultation ---
DATE OF CONSULTATION: 04/29/2020 INFECTIOUS DISEASE CONSULTATION CONSULTING PHYSICIAN: Gato Michael MD. PRIMARY ATTENDING: Eriberto Leal MD. REASON FOR CONSULTATION: Positive COVID test, low-grade fever. HISTORY OF PRESENT ILLNESS: This 64-year-old white male admitted yesterday from shelter because of coffee-ground vomiting. Last night, patient had fever of 100.4. He became COVID-19 test positive. The first time he became positive was 04/05/2020. He had a recent admission in [facility] in [place] in first days of April. He had 2 negative COVID tests there. PAST MEDICAL HISTORY: Significant for GI bleeding, diabetes mellitus, hypertension. 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 ALLERGIES: No known drug allergies. MEDICATIONS: Folic acid, magnesium sulfate, amlodipine, ceftriaxone, Tylenol, atorvastatin, Flomax, Protonix, Colace, hydralazine, Zofran. SOCIAL HISTORY: Single. [facility] resident. REVIEW OF SYSTEMS: Patient is communicative with nodding. Denies fever, chills, coughing, or shortness of breath. He denies any nausea or vomiting. PHYSICAL EXAMINATION: VITAL SIGNS: Temperature 98.1, pulse 98, blood pressure 164/98. GENERAL APPEARANCE: No acute distress. HEART: Normal rate. LUNGS: Clear. ABDOMEN: Soft. EXTREMITIES: Has no edema. LABORATORY AND DIAGNOSTIC DATA: WBC 6.5, hemoglobin 11.6, hematocrit 36.8, platelets 134. Sodium 141, potassium 4.6, chloride 105, bicarbonate 29, BUN 29, creatinine 1.7. Creatinine at the time of admission was 2.1. HIV test negative. COVID-19 PCR was positive. Urine culture so far is negative. UA shows wbc's 60 to 80, rbc's of 2 to 4. Chest x-ray showed no acute disease. IMPRESSION: Low-grade fever. Has pyuria. So far, urine culture negative. Has recent history of COVID. Does not seem to have active disease in chest x-ray. Has acute renal failure, chronic kidney disease, GI bleeding, hypertension, MRSA carrier, BPH, depression, obesity. RECOMMENDATION: Continue ceftriaxone for one more day. If remained stable, we will stop antibiotics tomorrow. At the end of my exam, I thank Dr. Leal for involving me in the care of this patient. Gato Michael M.D. DR: TRAY JOB#: [id number] CC: KIAN
--- NOTE | 2020-04-29 19:15 | NUR ---
NURSE NOTES: Report received from Mary RN, pt. is in bed, awake, alert and oriented, able to make needs known. No sob noted. Denies any pain at this time.Will continue to monitor.
--- NOTE | 2020-04-29 19:19 | NUR ---
HAND-OFF: Report given to AMPARO Vieyra.
[2020-04-29 20:00] VITALS: BP 119/70
[2020-04-29] MEDS: Tamsulosin 0.4mg cap ORAL SCH (21:05)
[2020-04-29] MEDS: Atorvastatin 20mg tab ORAL SCH (21:06)
[2020-04-30] VITALS: BP 123/79
[2020-04-30 04:00] VITALS: BP 116/81
--- NOTE | 2020-04-30 04:30 | History and Physical Report ---
DATE OF ADMISSION: 04/28/2020 HISTORY OF PRESENT ILLNESS: The patient is admitted to rule out gastrointestinal bleed. The patient with [facility]-ground emesis at the [facility]. The patient is also COVID positive from the [facility]. Denies abdominal pain. The patient has no shortness of breath. No cough. No runny nose. No sore throat. No headache. No blood in the stool. PAST MEDICAL HISTORY: Significant for NIDDM, hypertension, GERD, diabetes, and major depression and schizophrenia as well. History of ataxia. Also, has history of depression and hyperlipidemia and hypertension and BPH, psychosis and insomnia as well. PAST SURGICAL HISTORY: None. ALLERGIES: No known allergies. FAMILY HISTORY: Noncontributory. SOCIAL HISTORY: Denies history of smoking. Denies history of alcohol abuse. No history of drug abuse. MEDICATIONS: Vitamin C, aspirin, Lipitor, vitamin D, Neurontin, losartan, olanzapine, and Flomax. REVIEW OF SYSTEMS: HEENT: Denies headaches. Respiratory: Denies shortness of breath. Denies cough. Cardiovascular: Denies chest pain. Gastrointestinal: Reported vomiting. Denies abdominal pain, nausea. Denies rectal bleeding. Extremities: Denies pain in extremities. Central Nervous System: Denies change in vision or speech pattern. Feels weak. PHYSICAL EXAMINATION: VITAL SIGNS: Temperature is 98.2, pulse is 64, and blood pressure is 134/78. HEENT: PERRLA. NECK: Supple. No lymphadenopathy. CHEST: Clear to auscultation. CARDIOVASCULAR: Regular rate and rhythm. No murmurs or extra sounds. GASTROINTESTINAL: Soft, nontender, and nondistended. No organomegaly. EXTREMITIES: No edema. He is able to move all extremities. Generalized weakness. . LABORATORY DATA AND DIAGNOSTIC DATA: WBC of 7.3, hemoglobin 12.7, platelet 180, sodium 141, potassium 4.6, BUN of 40, creatinine of 2.1, glucose of 159. ASSESSMENT/PLAN: 1. Acute renal failure. 2. Coffee-ground emesis. 3. GI bleed. 4. Also, the patient has urinary tract infection and also has acute renal failure. 5. Positive COVID, positive pneumonia as well. 6. I asked Dr. Mccray, Dr. Gato Michael as well as Dr. Friedman to see the patient for the management of the coffee-ground emesis as well as management of the COVID positive pneumonia as well as for acute renal failure. The patient looks clinically dry. acute hydration, per Dr. Mccray. Eriberto Leal M.D. DR: VLAD JOB#: [id number] CC:
[2020-04-30 05:49] LABS: BASOPHILS % (AUTO) 1.3 % (0.0-2.0); EOSINOPHILS % (AUTO) 0.3 % (0.0-3.0); HEMATOCRIT 37.9 % (42.0-52.0); HEMOGLOBIN 12.2 G/DL (14.2-18.0); LYMPHOCYTES % (AUTO) 25.7 % (20.0-45.0); MEAN CORPUSCULAR VOLUME 86 FL (80-99); MONOCYTES % (AUTO) 9.5 % (1.0-10.0); NEUTROPHILS % (AUTO) 63.2 % (45.0-75.0); PLATELET COUNT 134 K/UL (150-450); RED CELL DISTRIBUTION WIDTH 13.8 % (11.6-14.8); WHITE BLOOD COUNT 4.3 K/UL (4.8-10.8)
[2020-04-30 06:16] LABS: ALANINE AMINOTRANSFERASE 19 U/L (12-78); ALBUMIN/GLOBULIN RATIO 0.8 (1.0-2.7); ALKALINE PHOSPHATASE 63 U/L (46-116); ANION GAP 7 mmol/L (5-15); ASPARTATE AMINO TRANSFERASE 18 U/L (15-37); BILIRUBIN,TOTAL 0.9 MG/DL (0.2-1.0); BLOOD UREA NITROGEN 18 mg/dL (7-18); CALCIUM 8.7 MG/DL (8.5-10.1); CARBON DIOXIDE 28 MMOL/L (21-32); CHLORIDE 104 MMOL/L (98-107); CREATININE 1.5 MG/DL (0.55-1.30); PHOSPHORUS 2.5 MG/DL (2.5-4.9); POTASSIUM 4.5 MMOL/L (3.5-5.1); SODIUM 138 MMOL/L (136-145)
--- NOTE | 2020-04-30 07:03 | Hematology/Onc Progress Note ---
Assessment/Plan Assessment/Plan Assessment and recs # Anemia due to underlying GI bleed -- patient presents with occult+ bleeding --> as per GI eval, may need endoscopy --> has been started on ppi --> cea has been ordered --> Hgb goal >7. Transfuse prn. --> Will sign consent if necessary --> Epogen or iron at this time is not particularly indicated --> Consider octreotide gtt as per gi eval --> hgb 11 # Thrombocytopenia - potential causes multifactorial, evaluate liver and viral etiologies to begin, may be due to covid19++ --> Hep panel and HIV ordered --> US abd to evaluate for cirrhosis and hsm ordered --> Peripheral smear ordered to evaluate for blasts /schistocytes --> abx and other meds have been reviewed --> ok for ppx if plt >50k w/ either heparin or lovenox --> Transfuse if Plt < 20k and fever, or if Plt < 10k without fever -> plt trend 180-->134 # COVID-19 --> iso as per id --> abx prn # Uti as per id --> abx # Renal failure most likely acute on chronic --> per Dr. Mccray # Hypertension # Diabetes mellitus # History of psych disease The timing of this note does not necessarily reflect the time of the patient was seen. Greatly appreciate consultation. Subjective HEENT: Denies: no symptoms, eye pain, blurred vision, tearing, double vision, ear pain, ear discharge, nose pain, nose congestion, throat pain, throat swelling, mouth pain, mouth swelling, other Cardiovascular: Denies: no symptoms, chest pain, edema, irregular heart rate, lightheadedness, palpitations, syncope, other Respiratory: Denies: no symptoms, cough, shortness of breath, SOB with excertion, SOB at rest, sputum, wheezing, other Gastrointestinal/Abdominal: Denies: no symptoms, abdomen distended, abdominal pain, black stools, tarry stools, blood in stool, constipated, diarrhea, difficulty swallowing, nausea, poor appetite, poor fluid intake, rectal bleeding , vomiting, other Neurologic/Psychiatric: Denies: no symptoms, anxiety, depressed, emotional problems, headache, numbness, paresthesia, pre-existing deficit, seizure, tingling, tremors, weakness, other Endocrine: Denies: no symptoms, excessive sweating, flushing, intolerance to cold, intolerance to heat, increased hunger, increased thirst, increased urine, unexplained weight gain, unexplained weight loss, other Hematologic/Lymphatic: Denies: no symptoms, anemia, easy bleeding, easy bruising, adenopathy, other Allergies: Coded Allergies: No Known Allergies (Unverified , 04/28/20) Subjective 04/30 labs reviewed, no bleeding, pending endoscopy when off iso per [facility] Objective Objective Current Medications Medications (Trade) Dose Ordered Sig/Jey Route PRN Reason Start Time Stop Time Status Last Admin Dose Admin Acetaminophen (Tylenol) 500 mg Q4H PRN ORAL Temp >100.5 04/28/20 21:45 05/28/20 21:44 04/28/20 21:42 Acetaminophen (Tylenol) 500 mg Q4H PRN ORAL Mild Pain (Pain Scale 1-3) 04/29/20 17:54 05/29/20 17:53 Amlodipine Besylate (Norvasc) 5 mg DAILY ORAL 04/29/20 09:00 05/29/20 08:59 04/29/20 08:59 Atorvastatin Calcium (Lipitor) 40 mg BEDTIME ORAL 04/28/20 21:00 07/27/20 20:59 04/29/20 21:06 Ceftriaxone Sodium 1 gm/ Dextrose 55 ml @ 110 mls/hr Q24H IVPB 04/29/20 09:00 05/06/20 08:59 04/29/20 09:03 Dextrose/Sodium Chloride 1,000 ml @ 75 mls/hr [id number] IV 04/28/20 16:45 05/28/20 16:44 04/29/20 17:25 Docusate Sodium (Colace) 100 mg THREE TIMES A DAY ORAL 04/28/20 18:00 05/28/20 17:59 04/29/20 12:19 Folic Acid (Folate) 1 mg DAILY ORAL 04/30/20 09:00 05/30/20 08:59 Hydralazine HCl (Apresoline) 25 mg Q4H PRN ORAL bp over 160 syst 04/28/20 16:45 07/27/20 16:44 Ondansetron HCl (Zofran) 4 mg Q6H PRN IVP Nausea & Vomiting 04/28/20 16:35 05/28/20 16:34 Pantoprazole (Protonix) 40 mg EVERY 12 HOURS IVP 04/28/20 21:00 05/28/20 20:59 04/29/20 21:05 Tamsulosin HCl (Flomax) 0.4 mg QHS ORAL 04/28/20 21:00 05/28/20 20:59 04/29/20 21:05 Last 24 Hour Vital Signs Date Time Temp Pulse Resp B/P (MAP) Pulse Ox O2 Delivery O2 Flow Rate FiO2 04/30/20 04:00 97.2 79 22 116/81 (93) 96 04/30/20 00:00 98.6 77 20 123/79 (94) 93 04/29/20 21:00 Room Air 04/29/20 20:00 98.2 67 18 119/70 (86) 95 04/29/20 15:54 98.4 74 20 119/62 (81) 95 04/29/20 12:00 98.1 98 19 164/98 (120) 100 04/29/20 09:00 Room Air 04/29/20 08:59 64 134/78 04/29/20 08:00 98.1 64 20 134/78 (96) 94 04/29/20 04:00 98.2 66 20 138/76 (96) 92 04/29/20 00:00 99.8 72 20 138/76 (96) 94 04/28/20 22:12 99.8 04/28/20 21:00 Room Air 04/28/20 20:00 100.4 77 22 149/79 (102) 93 04/28/20 18:45 Room Air 2.0 04/28/20 15:40 98.2 85 19 124/75 98 Nasal Cannula 2.0 04/28/20 15:33 96.8 82 16 130/64 98 Nasal Cannula 2.0 04/28/20 13:19 96.8 83 17 122/67 98 Nasal Cannula 2.0 04/28/20 11:30 96.8 76 18 124/68 99 Nasal Cannula 2.0 04/28/20 11:30 76 18 Nasal Cannula 2.0 99 04/28/20 11:16 96.8 67 14 127/71 (89) 99 Room Air Intake and Output 04/29/20 04/30/20 19:00 07:00 Intake Total 1360 ml 825 ml Balance 1360 ml 825 ml Intake Oral 300 ml IV Total 1060 ml 825 ml # Voids 3 # Bowel Movements 2 2 Labs Test 04/28/20 11:52 04/28/20 11:59 04/28/20 12:03 04/28/20 21:30 White Blood Count 7.3 K/UL (4.8-10.8) Red Blood Count 4.57 M/UL (4.70-6.10) Hemoglobin 12.7 G/DL (14.2-18.0) Hematocrit 39.9 % (42.0-52.0) Mean Corpuscular Volume 87 FL (80-99) Mean Corpuscular Hemoglobin 27.8 PG (27.0-31.0) Mean Corpuscular Hemoglobin Concent 31.8 G/DL (32.0-36.0) Red Cell Distribution Width 13.8 % (11.6-14.8) Platelet Count 180 K/UL (150-450) Mean Platelet Volume 6.8 FL (6.5-10.1) Neutrophils (%) (Auto) 77.0 % (45.0-75.0) Lymphocytes (%) (Auto) 14.2 % (20.0-45.0) Monocytes (%) (Auto) 7.5 % (1.0-10.0) Eosinophils (%) (Auto) 0.1 % (0.0-3.0) Basophils (%) (Auto) 1.0 % (0.0-2.0) Prothrombin Time 12.0 SEC (9.30-11.50) Prothromb Time International Ratio 1.1 (0.9-1.1) Activated Partial Thromboplast Time 26 SEC (23-33) Sodium Level 141 MMOL/L (136-145) Potassium Level 4.6 MMOL/L (3.5-5.1) Chloride Level 103 MMOL/L (98-107) Carbon Dioxide Level 33 MMOL/L (21-32) Anion Gap 5 mmol/L (5-15) Blood Urea Nitrogen 40 mg/dL (7-18) Creatinine 2.1 MG/DL (0.55-1.30) Estimat Glomerular Filtration Rate 31.8 mL/min (>60) Glucose Level 159 MG/DL (74-106) Calcium Level 9.6 MG/DL (8.5-10.1) Total Bilirubin 0.9 MG/DL (0.2-1.0) Aspartate Amino Transf (AST/SGOT) 27 U/L (15-37) Alanine Aminotransferase (ALT/SGPT) 32 U/L (12-78) Alkaline Phosphatase 69 U/L (46-116) Total Protein 7.7 G/DL (6.4-8.2) Albumin 3.5 G/DL (3.4-5.0) Globulin 4.2 g/dL Albumin/Globulin Ratio 0.8 (1.0-2.7) Lipase 302 U/L (73-393) Lactic Acid Level 1.50 mmol/L (0.4-2.0) Urine Color Yellow Urine Appearance Slightly cloudy Urine pH 6.5 (4.5-8.0) Urine Specific [place] 1.010 (1.005-1.035) Urine Protein 1+ (NEGATIVE) Urine Glucose (UA) Negative (NEGATIVE) Urine Ketones Negative (NEGATIVE) Urine Blood 1+ (NEGATIVE) Urine Nitrite Negative (NEGATIVE) Urine Bilirubin Negative (NEGATIVE) Urine Urobilinogen 4 MG/DL (0.0-1.0) Urine Leukocyte Esterase 3+ (NEGATIVE) Urine RBC 2-4 /HPF (0 - 0) Urine WBC 60-80 /HPF (0 - 0) Urine Squamous Epithelial Cells Occasional /LPF Urine Bacteria Occasional /HPF (NONE) Urine Random Sodium 119 mmol/L (20-110) Test 04/29/20 04:00 04/29/20 15:40 04/30/20 05:00 White Blood Count 6.5 K/UL (4.8-10.8) 4.3 K/UL (4.8-10.8) Red Blood Count 4.22 M/UL (4.70-6.10) 4.40 M/UL (4.70-6.10) Hemoglobin 11.6 G/DL (14.2-18.0) 12.2 G/DL (14.2-18.0) Hematocrit 36.8 % (42.0-52.0) 37.9 % (42.0-52.0) Mean Corpuscular Volume 87 FL (80-99) 86 FL (80-99) Mean Corpuscular Hemoglobin 27.4 PG (27.0-31.0) 27.6 PG (27.0-31.0) Mean Corpuscular Hemoglobin Concent 31.4 G/DL (32.0-36.0) 32.1 G/DL (32.0-36.0) Red Cell Distribution Width 14.1 % (11.6-14.8) 13.8 % (11.6-14.8) Platelet Count 134 K/UL (150-450) 134 K/UL (150-450) Mean Platelet Volume 6.0 FL (6.5-10.1) 6.3 FL (6.5-10.1) Neutrophils (%) (Auto) 73.5 % (45.0-75.0) 63.2 % (45.0-75.0) Lymphocytes (%) (Auto) 15.8 % (20.0-45.0) 25.7 % (20.0-45.0) Monocytes (%) (Auto) 10.1 % (1.0-10.0) 9.5 % (1.0-10.0) Eosinophils (%) (Auto) 0.1 % (0.0-3.0) 0.3 % (0.0-3.0) Basophils (%) (Auto) 0.5 % (0.0-2.0) 1.3 % (0.0-2.0) Sodium Level 141 MMOL/L (136-145) 138 MMOL/L (136-145) Potassium Level 4.6 MMOL/L (3.5-5.1) 4.5 MMOL/L (3.5-5.1) Chloride Level 105 MMOL/L (98-107) 104 MMOL/L (98-107) Carbon Dioxide Level 29 MMOL/L (21-32) 28 MMOL/L (21-32) Anion Gap 7 mmol/L (5-15) 7 mmol/L (5-15) Blood Urea Nitrogen 29 mg/dL (7-18) 18 mg/dL (7-18) Creatinine 1.7 MG/DL (0.55-1.30) 1.5 MG/DL (0.55-1.30) Estimat Glomerular Filtration Rate 40.5 mL/min (>60) 46.8 mL/min (>60) Glucose Level 72 MG/DL (74-106) 88 MG/DL (74-106) Hemoglobin A1c 6.7 % (4.3-6.0) Uric Acid 6.4 MG/DL (2.6-7.2) 5.5 MG/DL (2.6-7.2) Calcium Level 8.9 MG/DL (8.5-10.1) 8.7 MG/DL (8.5-10.1) Phosphorus Level 2.8 MG/DL (2.5-4.9) 2.5 MG/DL (2.5-4.9) Magnesium Level 1.3 MG/DL (1.8-2.4) 2.0 MG/DL (1.8-2.4) Iron Level 43 ug/dL (50-175) Total Iron Binding Capacity 211 ug/dL (250-450) Percent Iron Saturation 20 % (15-50) Unsaturated Iron Binding 168 ug/dL (112-346) Ferritin 158 NG/ML (8-388) Total Bilirubin 0.8 MG/DL (0.2-1.0) 0.9 MG/DL (0.2-1.0) Gamma Glutamyl Transpeptidase 10 U/L (5-85) Aspartate Amino Transf (AST/SGOT) 23 U/L (15-37) 18 U/L (15-37) Alanine Aminotransferase (ALT/SGPT) 26 U/L (12-78) 19 U/L (12-78) Alkaline Phosphatase 60 U/L (46-116) 63 U/L (46-116) Total Creatine Kinase 38 U/L (26-308) Troponin I 0.034 ng/mL (0.000-0.056) C-Reactive Protein, Quantitative 3.6 mg/dL (0.00-0.90) 4.7 mg/dL (0.00-0.90) Pro-B-Type Natriuretic Peptide 419 pg/mL (0-125) 359 pg/mL (0-125) Total Protein 6.6 G/DL (6.4-8.2) 6.9 G/DL (6.4-8.2) Albumin 3.0 G/DL (3.4-5.0) 3.0 G/DL (3.4-5.0) Globulin 3.6 g/dL 3.9 g/dL Albumin/Globulin Ratio 0.8 (1.0-2.7) 0.8 (1.0-2.7) Triglycerides Level 111 MG/DL (30-150) Cholesterol Level 91 MG/DL (< 200) LDL Cholesterol 44 mg/dL (<100) HDL Cholesterol 29 MG/DL (40-60) Cholesterol/HDL Ratio 3.1 (3.3-4.4) Vitamin B12 Level 295 PG/ML (193-986) Folate 6.1 NG/ML (8.6-58.9) Thyroid Stimulating Hormone (TSH) 0.121 uiU/mL (0.358-3.740) HIV (1&2) Antibody Rapid Negative (NEGATIVE) Height (Feet): 5 Height (Inches): 7.00 Weight (Pounds): 173 Objective Physical Exam: Vitals: reviewed General: NAD HEENT: nc, at Neck: supple Chest: clear breath sounds bilaterally Cardiovascular: RRR, no s3, s4 Abdomen: soft, nontender, nd Extremities: no cce, normal range of motion Neuro: alert and oriented Tony Melo MD Apr 30, 2020 07:03
--- NOTE | 2020-04-30 07:32 | NUR ---
NURSE NOTES: Report given to Catrina CHRISTENSEN.
--- NOTE | 2020-04-30 08:00 | NUR ---
NURSE NOTES: Patient awake and alert,respirations unlabored.IV fluids infusing as ordered.Patient has on condom catheter with yellow urine noted in drainage bag.Patient sitting up in bed and eating breakfast.Bed alarm on,call light within reach.
[2020-04-30 08:38] VITALS: BP 100/62
[2020-04-30] MEDS: Docusate 100mg cap ORAL SCH ×3 (09:03→18:00)
[2020-04-30] MEDS: Pantoprazole Inj IVP SCH ×2 (09:05→21:05)
[2020-04-30] MEDS: cefTRIAXone 1 GM in D5W 55 ML IVPB SCH (09:05)
--- NOTE | 2020-04-30 10:34 | Nephrology Progress Note ---
Assessment/Plan Problem List: (1) DESIREE (acute kidney injury) Assessment: Serum creatinine is lowering (2) Renal failure (ARF), acute on chronic (3) COVID-19 (4) Dehydration (5) Anemia Assessment Renal failure most likely acute on chronic Contributors to chronic kidney disease are diabetes mellitus and hypertension Patient is being admitted with GI bleed Evidence of UTI COVID-19 positive Hypertension Diabetes mellitus History of psych disease Plan Started on soft diet Will decrease IV fluids Will adjust blood pressure medication Previously: Monitor for further upper GI bleed, Monitor H&H. Magnesium sulfate supplement intravenously 4 g given today IV Protonix Slow hydration Keep the blood pressure blood sugar in check Avoid nephrotoxic's Monitor renal parameters Urine studies Antibiotics for UTI Per orders Subjective ROS Limited/Unobtainable: No Objective Objective Last 24 Hour Vital Signs Date Time Temp Pulse Resp B/P (MAP) Pulse Ox O2 Delivery O2 Flow Rate FiO2 04/30/20 08:39 70 100/62 04/30/20 08:38 97.5 70 20 100/62 (75) 95 04/30/20 04:00 97.2 79 22 116/81 (93) 96 04/30/20 00:00 98.6 77 20 123/79 (94) 93 04/29/20 21:00 Room Air 04/29/20 20:00 98.2 67 18 119/70 (86) 95 04/29/20 15:54 98.4 74 20 119/62 (81) 95 04/29/20 12:00 98.1 98 19 164/98 (120) 100 Intake and Output 04/29/20 04/30/20 19:00 07:00 Intake Total 1360 ml 825 ml Balance 1360 ml 825 ml Intake Oral 300 ml IV Total 1060 ml 825 ml # Voids 3 # Bowel Movements 2 2 Current Medications Medications (Trade) Dose Ordered Sig/Jey Route PRN Reason Start Time Stop Time Status Last Admin Dose Admin Acetaminophen (Tylenol) 500 mg Q4H PRN ORAL Temp >100.5 04/28/20 21:45 05/28/20 21:44 04/28/20 21:42 Acetaminophen (Tylenol) 500 mg Q4H PRN ORAL Mild Pain (Pain Scale 1-3) 04/29/20 17:54 05/29/20 17:53 Amlodipine Besylate (Norvasc) 5 mg DAILY ORAL 04/29/20 09:00 05/29/20 08:59 04/29/20 08:59 Atorvastatin Calcium (Lipitor) 40 mg BEDTIME ORAL 04/28/20 21:00 07/27/20 20:59 04/29/20 21:06 Ceftriaxone Sodium 1 gm/ Dextrose 55 ml @ 110 mls/hr Q24H IVPB 04/29/20 09:00 05/06/20 08:59 04/30/20 09:05 Docusate Sodium (Colace) 100 mg THREE TIMES A DAY ORAL 04/28/20 18:00 05/28/20 17:59 04/30/20 09:03 Folic Acid (Folate) 1 mg DAILY ORAL 04/30/20 09:00 05/30/20 08:59 04/30/20 09:04 Hydralazine HCl (Apresoline) 25 mg Q4H PRN ORAL bp over 160 syst 04/28/20 16:45 07/27/20 16:44 Ondansetron HCl (Zofran) 4 mg Q6H PRN IVP Nausea & Vomiting 04/28/20 16:35 05/28/20 16:34 Pantoprazole (Protonix) 40 mg EVERY 12 HOURS IVP 04/28/20 21:00 05/28/20 20:59 04/30/20 09:05 Tamsulosin HCl (Flomax) 0.4 mg QHS ORAL 04/28/20 21:00 05/28/20 20:59 04/29/20 21:05 Laboratory Tests 04/29/20 15:40: Stool Occult Blood [Pending] 04/30/20 05:00: White Blood Count 4.3L, Red Blood Count 4.40L, Hemoglobin 12.2L, Hematocrit 37.9L, Mean Corpuscular Volume 86, Mean Corpuscular Hemoglobin 27.6, Mean Corpuscular Hemoglobin Concent 32.1, Red Cell Distribution Width 13.8, Platelet Count 134L, Mean Platelet Volume 6.3L, Neutrophils (%) (Auto) 63.2, Lymphocytes (%) (Auto) 25.7, Monocytes (%) (Auto) 9.5, Eosinophils (%) (Auto) 0.3, Basophils (%) (Auto) 1.3, Sodium Level 138, Potassium Level 4.5, Chloride Level 104, Carbon Dioxide Level 28, Anion Gap 7, Blood Urea Nitrogen 18, Creatinine 1.5H, Estimat Glomerular Filtration Rate 46.8, Glucose Level 88, Uric Acid 5.5, Calcium Level 8.7, Phosphorus Level 2.5, Magnesium Level 2.0, Total Bilirubin 0.9, Aspartate Amino Transf (AST/SGOT) 18, Alanine Aminotransferase (ALT/SGPT) 19, Alkaline Phosphatase 63, C-Reactive Protein, Quantitative 4.7H, Pro-B-Type Natriuretic Peptide 359H, Total Protein 6.9, Albumin 3.0L, Globulin 3.9, Albumin /Globulin Ratio 0.8L Height (Feet): 5 Height (Inches): 7.00 Weight (Pounds): 173 General Appearance: no apparent distress Cardiovascular: normal rate Respiratory/Chest: decreased breath sounds Abdomen: soft Christophe Mccray MD Apr 30, 2020 10:34
[2020-04-30 12:00] VITALS: BP 142/79
--- NOTE | 2020-04-30 12:02 | NUR ---
NURSE NOTES: DR Montrell Michael here to see patient aware of patient positive results of positive of MRSA Nares.
--- NOTE | 2020-04-30 12:04 | Infectious Diseases Prog Note ---
Assessment/Plan Assessment/Plan IMPRESSION: Low-grade fever resolved Pyuria. So far, urine culture negative. Has recent history of COVID. Acute renal failure, Chronic kidney disease, GI bleeding, Hypertension, MRSA carrier, BPH, depression, RECOMMENDATION: Discontinue ceftriaxone Case was D/W RN Subjective ROS Limited/Unobtainable: Yes Constitutional: Reports: no symptoms Respiratory: Reports: no symptoms Cardiovascular: Reports: no symptoms Gastrointestinal/Abdominal: Reports: no symptoms Genitourinary: Reports: no symptoms Allergies: Coded Allergies: No Known Allergies (Unverified , 04/28/20) Objective Vital Signs Last 24 Hour Vital Signs Date Time Temp Pulse Resp B/P (MAP) Pulse Ox O2 Delivery O2 Flow Rate FiO2 04/30/20 08:39 70 100/62 04/30/20 08:38 97.5 70 20 100/62 (75) 95 04/30/20 04:00 97.2 79 22 116/81 (93) 96 04/30/20 00:00 98.6 77 20 123/79 (94) 93 04/29/20 21:00 Room Air 04/29/20 20:00 98.2 67 18 119/70 (86) 95 04/29/20 15:54 98.4 74 20 119/62 (81) 95 Height (Feet): 5 Height (Inches): 7.00 Weight (Pounds): 173 General Appearance: no acute distress HEENT: mucous membranes moist Respiratory/Chest: no respiratory distress Cardiovascular: normal rate Abdomen: soft, non tender Extremities: no edema Neurologic/Psychiatric: alert, responsive Microbiology Date/Time Source Procedure Growth Status 04/28/20 11:59 Blood Blood Culture - Preliminary NO GROWTH AFTER 24 HOURS Resulted 04/28/20 11:59 Blood Blood Culture - Preliminary NO GROWTH AFTER 24 HOURS Resulted 04/28/20 14:10 Nasal Nares MRSA Culture - Final Staphylococcus Aureus - Mrsa Complete 04/28/20 12:00 Nasopharynx Coronavirus COVID-19 PCR ([facility]) - Final Complete 04/28/20 12:03 Urine,Clean Catch Urine Culture - Preliminary Mixed Gram Positive Organism Resulted 04/28/20 14:10 Rectum Unverified Laboratory Tests Test 04/29/20 15:40 04/30/20 05:00 Stool Occult Blood Pending White Blood Count 4.3 K/UL (4.8-10.8) L Red Blood Count 4.40 M/UL (4.70-6.10) L Hemoglobin 12.2 G/DL (14.2-18.0) L Hematocrit 37.9 % (42.0-52.0) L Mean Corpuscular Volume 86 FL (80-99) Mean Corpuscular Hemoglobin 27.6 PG (27.0-31.0) Mean Corpuscular Hemoglobin Concent 32.1 G/DL (32.0-36.0) Red Cell Distribution Width 13.8 % (11.6-14.8) Platelet Count 134 K/UL (150-450) L Mean Platelet Volume 6.3 FL (6.5-10.1) L Neutrophils (%) (Auto) 63.2 % (45.0-75.0) Lymphocytes (%) (Auto) 25.7 % (20.0-45.0) Monocytes (%) (Auto) 9.5 % (1.0-10.0) Eosinophils (%) (Auto) 0.3 % (0.0-3.0) Basophils (%) (Auto) 1.3 % (0.0-2.0) Sodium Level 138 MMOL/L (136-145) Potassium Level 4.5 MMOL/L (3.5-5.1) Chloride Level 104 MMOL/L (98-107) Carbon Dioxide Level 28 MMOL/L (21-32) Anion Gap 7 mmol/L (5-15) Blood Urea Nitrogen 18 mg/dL (7-18) Creatinine 1.5 MG/DL (0.55-1.30) H Estimat Glomerular Filtration Rate 46.8 mL/min (>60) Glucose Level 88 MG/DL (74-106) Uric Acid 5.5 MG/DL (2.6-7.2) Calcium Level 8.7 MG/DL (8.5-10.1) Phosphorus Level 2.5 MG/DL (2.5-4.9) Magnesium Level 2.0 MG/DL (1.8-2.4) Total Bilirubin 0.9 MG/DL (0.2-1.0) Aspartate Amino Transf (AST/SGOT) 18 U/L (15-37) Alanine Aminotransferase (ALT/SGPT) 19 U/L (12-78) Alkaline Phosphatase 63 U/L (46-116) C-Reactive Protein, Quantitative 4.7 mg/dL (0.00-0.90) H Pro-B-Type Natriuretic Peptide 359 pg/mL (0-125) H Total Protein 6.9 G/DL (6.4-8.2) Albumin 3.0 G/DL (3.4-5.0) L Globulin 3.9 g/dL Albumin/Globulin Ratio 0.8 (1.0-2.7) L Current Medications Medications (Trade) Dose Ordered Sig/Jey Route PRN Reason Start Time Stop Time Status Last Admin Dose Admin Acetaminophen (Tylenol) 500 mg Q4H PRN ORAL Temp >100.5 04/28/20 21:45 05/28/20 21:44 04/28/20 21:42 Acetaminophen (Tylenol) 500 mg Q4H PRN ORAL Mild Pain (Pain Scale 1-3) 04/29/20 17:54 05/29/20 17:53 Amlodipine Besylate (Norvasc) 2.5 mg DAILY ORAL 05/01/20 09:00 05/31/20 08:59 Atorvastatin Calcium (Lipitor) 40 mg BEDTIME ORAL 04/28/20 21:00 07/27/20 20:59 04/29/20 21:06 Ceftriaxone Sodium 1 gm/ Dextrose 55 ml @ 110 mls/hr Q24H IVPB 04/29/20 09:00 05/06/20 08:59 04/30/20 09:05 Docusate Sodium (Colace) 100 mg THREE TIMES A DAY ORAL 04/28/20 18:00 05/28/20 17:59 04/30/20 09:03 Folic Acid (Folate) 2 mg DAILY ORAL 05/01/20 09:00 05/30/20 08:59 Hydralazine HCl (Apresoline) 25 mg Q4H PRN ORAL bp over 160 syst 04/28/20 16:45 07/27/20 16:44 Ondansetron HCl (Zofran) 4 mg Q6H PRN IVP Nausea & Vomiting 04/28/20 16:35 05/28/20 16:34 Pantoprazole (Protonix) 40 mg EVERY 12 HOURS IVP 04/28/20 21:00 05/28/20 20:59 04/30/20 09:05 Tamsulosin HCl (Flomax) 0.4 mg QHS ORAL 04/28/20 21:00 05/28/20 20:59 04/29/20 21:05 Gato Michael MD Apr 30, 2020 12:04
--- NOTE | 2020-04-30 12:57 | General Progress Note ---
Assessment/Plan Problem List: (1) COVID-19 ICD Codes: U07.1 - COVID-19 SNOMED: 599412430 (2) Renal failure (ARF), acute on chronic ICD Codes: N17.9 - Acute kidney failure, unspecified; N18.9 - Chronic kidney disease, unspecified SNOMED: 197367787 (3) DESIREE (acute kidney injury) ICD Codes: N17.9 - Acute kidney failure, unspecified SNOMED: 8014142, 02421666 (4) Anemia ICD Codes: D64.9 - Anemia, unspecified SNOMED: 083177210 (5) Dehydration ICD Codes: E86.0 - Dehydration SNOMED: 95574270 Assessment/Plan: stable H&H neg stool ob on ppi will hold GI procedures for now Subjective Allergies: Coded Allergies: No Known Allergies (Unverified , 04/28/20) Objective Last 24 Hour Vital Signs Date Time Temp Pulse Resp B/P (MAP) Pulse Ox O2 Delivery O2 Flow Rate FiO2 04/30/20 09:00 Room Air 04/30/20 08:39 70 100/62 04/30/20 08:38 97.5 70 20 100/62 (75) 95 04/30/20 04:00 97.2 79 22 116/81 (93) 96 04/30/20 00:00 98.6 77 20 123/79 (94) 93 04/29/20 21:00 Room Air 04/29/20 20:00 98.2 67 18 119/70 (86) 95 04/29/20 15:54 98.4 74 20 119/62 (81) 95 Intake and Output 04/29/20 04/30/20 19:00 07:00 Intake Total 1360 ml 825 ml Balance 1360 ml 825 ml Intake Oral 300 ml IV Total 1060 ml 825 ml # Voids 3 # Bowel Movements 2 2 Laboratory Tests 04/29/20 15:40: Stool Occult Blood Negative 04/30/20 05:00: White Blood Count 4.3L, Red Blood Count 4.40L, Hemoglobin 12.2L, Hematocrit 37.9L, Mean Corpuscular Volume 86, Mean Corpuscular Hemoglobin 27.6, Mean Corpuscular Hemoglobin Concent 32.1, Red Cell Distribution Width 13.8, Platelet Count 134L, Mean Platelet Volume 6.3L, Neutrophils (%) (Auto) 63.2, Lymphocytes (%) (Auto) 25.7, Monocytes (%) (Auto) 9.5, Eosinophils (%) (Auto) 0.3, Basophils (%) (Auto) 1.3, Sodium Level 138, Potassium Level 4.5, Chloride Level 104, Carbon Dioxide Level 28, Anion Gap 7, Blood Urea Nitrogen 18, Creatinine 1.5H, Estimat Glomerular Filtration Rate 46.8, Glucose Level 88, Uric Acid 5.5, Calcium Level 8.7, Phosphorus Level 2.5, Magnesium Level 2.0, Total Bilirubin 0.9, Aspartate Amino Transf (AST/SGOT) 18, Alanine Aminotransferase (ALT/SGPT) 19, Alkaline Phosphatase 63, C-Reactive Protein, Quantitative 4.7H, Pro-B-Type Natriuretic Peptide 359H, Total Protein 6.9, Albumin 3.0L, Globulin 3.9, Albumin /Globulin Ratio 0.8L Height (Feet): 5 Height (Inches): 7.00 Weight (Pounds): 173 General Appearance: alert EENT: normal ENT inspection Neck: supple Cardiovascular: normal rate Respiratory/Chest: decreased breath sounds Abdomen: normal bowel sounds, non tender, soft Extremities: non-tender Hossein Friedman MD Apr 30, 2020 12:57
[2020-04-30 16:00] VITALS: BP 134/68
--- NOTE | 2020-04-30 18:00 | NUR ---
NURSE NOTES: Patient resting,no complaints at this time,call light within reach,bed alarm is on.
--- NOTE | 2020-04-30 19:35 | NUR ---
HAND-OFF: Report given to Pamela CHRISTENSEN,aware of fall risk..
--- NOTE | 2020-04-30 19:40 | NUR ---
NURSE NOTES: Received report from sienna klein. patient is on bed, awake and verbally responsive. with iv line on the right forearm, saline lock,. with condom catheter in placed. with scd's on. denies any pain or discomfort. room air, no sob. reiterated to call and ask for assistance. bed locked and in lowest position. bed alarm on. call light and light button within easy reach. will continue plan of care.
[2020-04-30 20:00] VITALS: BP 124/74
[2020-04-30] MEDS: Tamsulosin 0.4mg cap ORAL SCH (21:05)
[2020-04-30] MEDS: Atorvastatin 20mg tab ORAL SCH (21:05)
--- NOTE | 2020-04-30 22:11 | General Progress Note ---
Assessment/Plan Problem List: (1) UGIB (upper gastrointestinal bleed) ICD Codes: K92.2 - Gastrointestinal hemorrhage, unspecified SNOMED: 24661329 (2) UTI (urinary tract infection) ICD Codes: N39.0 - Urinary tract infection, site not specified SNOMED: 95573225 Qualifiers: Qualified Codes: N39.0 - Urinary tract infection, site not specified (3) Dehydration ICD Codes: E86.0 - Dehydration SNOMED: 71528360 (4) Anemia ICD Codes: D64.9 - Anemia, unspecified SNOMED: 188999116 (5) DESIREE (acute kidney injury) ICD Codes: N17.9 - Acute kidney failure, unspecified SNOMED: 5095164, 14773383 (6) COVID-19 ICD Codes: U07.1 - COVID-19 SNOMED: 396952818 Status: progressing Assessment/Plan: gi bleed will discuss w gi afebrile check h/h anemia is stable Subjective ROS Limited/Unobtainable: Yes Allergies: Coded Allergies: No Known Allergies (Unverified , 04/28/20) Objective Last 24 Hour Vital Signs Date Time Temp Pulse Resp B/P (MAP) Pulse Ox O2 Delivery O2 Flow Rate FiO2 04/30/20 21:00 Room Air 04/30/20 20:00 97.9 64 18 124/74 (91) 94 04/30/20 16:00 97.7 57 18 134/68 (90) 94 04/30/20 12:00 98.1 64 18 142/79 (100) 96 04/30/20 09:00 Room Air 04/30/20 08:39 70 100/62 04/30/20 08:38 97.5 70 20 100/62 (75) 95 04/30/20 04:00 97.2 79 22 116/81 (93) 96 04/30/20 00:00 98.6 77 20 123/79 (94) 93 Intake and Output 04/29/20 04/30/20 19:00 07:00 Intake Total 1360 ml 825 ml Balance 1360 ml 825 ml Intake Oral 300 ml IV Total 1060 ml 825 ml # Voids 3 # Bowel Movements 2 2 Laboratory Tests 04/30/20 05:00: White Blood Count 4.3L, Red Blood Count 4.40L, Hemoglobin 12.2L, Hematocrit 37.9L, Mean Corpuscular Volume 86, Mean Corpuscular Hemoglobin 27.6, Mean Corpuscular Hemoglobin Concent 32.1, Red Cell Distribution Width 13.8, Platelet Count 134L, Mean Platelet Volume 6.3L, Neutrophils (%) (Auto) 63.2, Lymphocytes (%) (Auto) 25.7, Monocytes (%) (Auto) 9.5, Eosinophils (%) (Auto) 0.3, Basophils (%) (Auto) 1.3, Sodium Level 138, Potassium Level 4.5, Chloride Level 104, Carbon Dioxide Level 28, Anion Gap 7, Blood Urea Nitrogen 18, Creatinine 1.5H, Estimat Glomerular Filtration Rate 46.8, Glucose Level 88, Uric Acid 5.5, Calcium Level 8.7, Phosphorus Level 2.5, Magnesium Level 2.0, Total Bilirubin 0.9, Aspartate Amino Transf (AST/SGOT) 18, Alanine Aminotransferase (ALT/SGPT) 19, Alkaline Phosphatase 63, C-Reactive Protein, Quantitative 4.7H, Pro-B-Type Natriuretic Peptide 359H, Total Protein 6.9, Albumin 3.0L, Globulin 3.9, Albumin /Globulin Ratio 0.8L Height (Feet): 5 Height (Inches): 7.00 Weight (Pounds): 173 Eriberto Leal MD Apr 30, 2020 22:11
[2020-05-01] VITALS: BP 125/79
[2020-05-01 04:00] VITALS: BP 129/76
--- NOTE | 2020-05-01 07:20 | NUR ---
HAND-OFF: Report given to sienna hutchinson. patient is on bed, asleep. no sob. call light and light button within easy reach. plan of care endorsed.
--- NOTE | 2020-05-01 07:31 | NUR ---
NURSE NOTES: Report received from AMPARO Santiago. Patient is in bed, no SOB, alert and oriented x 3, bed in lowest position with breaks engaged and alarm on, IV line on right arm patent and intact, on droplet and contact isolation for COVID 19, denies any pain or discomfort at this time, will continue to monitor and proceed with plan of care. Call light within reach.
[2020-05-01 08:00] VITALS: BP 129/60
[2020-05-01] MEDS: Docusate 100mg cap ORAL SCH (08:49)
[2020-05-01] MEDS: Pantoprazole Inj IVP SCH (08:49)
--- NOTE | 2020-05-01 09:21 | NUR ---
DISCHARGE PLANNING PATIENT HAS BEEN REFERRED BACK TO [facility] P: [phone] F: [phone]
--- NOTE | 2020-05-01 09:49 | NUR ---
*-*DISCHARGE PLANNING*-* PATIENT HAS BEEN REFERRED BACK TO [facility] P: [phone] S/W RAKESH, STATED WILL CALL BACK AFTER REVIEW.
--- NOTE | 2020-05-01 10:39 | NUR ---
*-*DISCHARGE PLANNED*-* PATIENT HAS BEEN ACCEPTED AND WILL BE DISCHARGED BACK TO: [facility] P: [phone] FOR NURSE TO NURSE REPORT ROOM# 105.C SKILLED [facility] TRANSPORT[facility] SET FOR 12PM S/W [id number] PLACED A CALL TO PATIENTS BROTHER, CORTNEY DOVER, NO ANSWER, LEFT VOICE MESSAGE.
--- NOTE | 2020-05-01 11:10 | Hematology/Onc Progress Note ---
Assessment/Plan Assessment/Plan Assessment and recs # Anemia due to underlying GI bleed -- patient presents with occult+ bleeding --> as per GI eval, may need endoscopy --> has been started on ppi --> cea has been ordered --> Hgb goal >7. Transfuse prn. --> Will sign consent if necessary --> Epogen or iron at this time is not particularly indicated --> Consider octreotide gtt as per gi eval --> hgb 11 # Thrombocytopenia - potential causes multifactorial, evaluate liver and viral etiologies to begin, may be due to covid19++ --> Hep panel and HIV ordered --> US abd to evaluate for cirrhosis and hsm ordered --> Peripheral smear ordered to evaluate for blasts /schistocytes --> abx and other meds have been reviewed --> ok for ppx if plt >50k w/ either heparin or lovenox --> Transfuse if Plt < 20k and fever, or if Plt < 10k without fever -> plt trend 180-->134 # COVID-19 --> iso as per id --> abx prn # Uti as per id --> abx # Renal failure most likely acute on chronic --> per Dr. Mccray # Hypertension # Diabetes mellitus # History of psych disease The timing of this note does not necessarily reflect the time of the patient was seen. Greatly appreciate consultation. Subjective Constitutional: Denies: no symptoms, chills, fever, malaise, weakness, other Cardiovascular: Denies: no symptoms, chest pain, edema, irregular heart rate, lightheadedness, palpitations, syncope, other Respiratory: Denies: no symptoms, cough, shortness of breath, SOB with excertion, SOB at rest, sputum, wheezing, other Gastrointestinal/Abdominal: Denies: no symptoms, abdomen distended, abdominal pain, black stools, tarry stools, blood in stool, constipated, diarrhea, difficulty swallowing, nausea, poor appetite, poor fluid intake, rectal bleeding , vomiting, other Genitourinary: Denies: no symptoms, burning, discharge, frequency, flank pain, hematuria, incontinence, pain, urgency, other Endocrine: Denies: no symptoms, excessive sweating, flushing, intolerance to cold, intolerance to heat, increased hunger, increased thirst, increased urine, unexplained weight gain, unexplained weight loss, other Allergies: Coded Allergies: No Known Allergies (Unverified , 04/28/20) Subjective 04/30 labs reviewed, no bleeding, pending endoscopy when off iso per [facility] 05/01 labs reviewed, no bleeding hgb 11, on iso still Objective Objective Current Medications Medications (Trade) Dose Ordered Sig/Jey Route PRN Reason Start Time Stop Time Status Last Admin Dose Admin Acetaminophen (Tylenol) 500 mg Q4H PRN ORAL Temp >100.5 04/28/20 21:45 05/28/20 21:44 04/28/20 21:42 Acetaminophen (Tylenol) 500 mg Q4H PRN ORAL Mild Pain (Pain Scale 1-3) 04/29/20 17:54 05/29/20 17:53 Amlodipine Besylate (Norvasc) 2.5 mg DAILY ORAL 05/01/20 09:00 05/31/20 08:59 05/01/20 08:48 Atorvastatin Calcium (Lipitor) 40 mg BEDTIME ORAL 04/28/20 21:00 07/27/20 20:59 04/30/20 21:05 Docusate Sodium (Colace) 100 mg THREE TIMES A DAY ORAL 04/28/20 18:00 05/28/20 17:59 05/01/20 08:49 Folic Acid (Folate) 2 mg DAILY ORAL 05/01/20 09:00 05/30/20 08:59 05/01/20 08:49 Hydralazine HCl (Apresoline) 25 mg Q4H PRN ORAL bp over 160 syst 04/28/20 16:45 07/27/20 16:44 Ondansetron HCl (Zofran) 4 mg Q6H PRN IVP Nausea & Vomiting 04/28/20 16:35 05/28/20 16:34 Pantoprazole (Protonix) 40 mg EVERY 12 HOURS IVP 04/28/20 21:00 05/28/20 20:59 05/01/20 08:49 Tamsulosin HCl (Flomax) 0.4 mg QHS ORAL 04/28/20 21:00 05/28/20 20:59 04/30/20 21:05 Last 24 Hour Vital Signs Date Time Temp Pulse Resp B/P (MAP) Pulse Ox O2 Delivery O2 Flow Rate FiO2 05/01/20 09:00 Room Air 05/01/20 08:48 62 129/60 05/01/20 08:00 98.2 57 19 129/60 (83) 95 05/01/20 04:00 98.8 69 22 129/76 (93) 95 05/01/20 00:00 98.1 64 18 125/79 (94) 94 04/30/20 21:00 Room Air 04/30/20 20:00 97.9 64 18 124/74 (91) 94 04/30/20 16:00 97.7 57 18 134/68 (90) 94 04/30/20 12:00 98.1 64 18 142/79 (100) 96 04/30/20 09:00 Room Air 04/30/20 08:39 70 100/62 04/30/20 08:38 97.5 70 20 100/62 (75) 95 04/30/20 04:00 97.2 79 22 116/81 (93) 96 04/30/20 00:00 98.6 77 20 123/79 (94) 93 04/29/20 21:00 Room Air 04/29/20 20:00 98.2 67 18 119/70 (86) 95 04/29/20 15:54 98.4 74 20 119/62 (81) 95 04/29/20 12:00 98.1 98 19 164/98 (120) 100 Intake and Output 04/30/20 05/01/20 19:00 07:00 Intake Total 555 ml 500 ml Balance 555 ml 500 ml Intake Oral 480 ml 240 ml IV Total 75 ml Other 260 ml # Voids 2 # Bowel Movements 2 3 Labs Test 04/28/20 11:52 04/28/20 11:59 04/28/20 12:03 04/28/20 21:30 White Blood Count 7.3 K/UL (4.8-10.8) Red Blood Count 4.57 M/UL (4.70-6.10) Hemoglobin 12.7 G/DL (14.2-18.0) Hematocrit 39.9 % (42.0-52.0) Mean Corpuscular Volume 87 FL (80-99) Mean Corpuscular Hemoglobin 27.8 PG (27.0-31.0) Mean Corpuscular Hemoglobin Concent 31.8 G/DL (32.0-36.0) Red Cell Distribution Width 13.8 % (11.6-14.8) Platelet Count 180 K/UL (150-450) Mean Platelet Volume 6.8 FL (6.5-10.1) Neutrophils (%) (Auto) 77.0 % (45.0-75.0) Lymphocytes (%) (Auto) 14.2 % (20.0-45.0) Monocytes (%) (Auto) 7.5 % (1.0-10.0) Eosinophils (%) (Auto) 0.1 % (0.0-3.0) Basophils (%) (Auto) 1.0 % (0.0-2.0) Prothrombin Time 12.0 SEC (9.30-11.50) Prothromb Time International Ratio 1.1 (0.9-1.1) Activated Partial Thromboplast Time 26 SEC (23-33) Sodium Level 141 MMOL/L (136-145) Potassium Level 4.6 MMOL/L (3.5-5.1) Chloride Level 103 MMOL/L (98-107) Carbon Dioxide Level 33 MMOL/L (21-32) Anion Gap 5 mmol/L (5-15) Blood Urea Nitrogen 40 mg/dL (7-18) Creatinine 2.1 MG/DL (0.55-1.30) Estimat Glomerular Filtration Rate 31.8 mL/min (>60) Glucose Level 159 MG/DL (74-106) Calcium Level 9.6 MG/DL (8.5-10.1) Total Bilirubin 0.9 MG/DL (0.2-1.0) Aspartate Amino Transf (AST/SGOT) 27 U/L (15-37) Alanine Aminotransferase (ALT/SGPT) 32 U/L (12-78) Alkaline Phosphatase 69 U/L (46-116) Total Protein 7.7 G/DL (6.4-8.2) Albumin 3.5 G/DL (3.4-5.0) Globulin 4.2 g/dL Albumin/Globulin Ratio 0.8 (1.0-2.7) Lipase 302 U/L (73-393) Lactic Acid Level 1.50 mmol/L (0.4-2.0) Urine Color Yellow Urine Appearance Slightly cloudy Urine pH 6.5 (4.5-8.0) Urine Specific [place] 1.010 (1.005-1.035) Urine Protein 1+ (NEGATIVE) Urine Glucose (UA) Negative (NEGATIVE) Urine Ketones Negative (NEGATIVE) Urine Blood 1+ (NEGATIVE) Urine Nitrite Negative (NEGATIVE) Urine Bilirubin Negative (NEGATIVE) Urine Urobilinogen 4 MG/DL (0.0-1.0) Urine Leukocyte Esterase 3+ (NEGATIVE) Urine RBC 2-4 /HPF (0 - 0) Urine WBC 60-80 /HPF (0 - 0) Urine Squamous Epithelial Cells Occasional /LPF Urine Bacteria Occasional /HPF (NONE) Urine Random Sodium 119 mmol/L (20-110) Test 04/29/20 04:00 04/29/20 15:40 04/30/20 05:00 White Blood Count 6.5 K/UL (4.8-10.8) 4.3 K/UL (4.8-10.8) Red Blood Count 4.22 M/UL (4.70-6.10) 4.40 M/UL (4.70-6.10) Hemoglobin 11.6 G/DL (14.2-18.0) 12.2 G/DL (14.2-18.0) Hematocrit 36.8 % (42.0-52.0) 37.9 % (42.0-52.0) Mean Corpuscular Volume 87 FL (80-99) 86 FL (80-99) Mean Corpuscular Hemoglobin 27.4 PG (27.0-31.0) 27.6 PG (27.0-31.0) Mean Corpuscular Hemoglobin Concent 31.4 G/DL (32.0-36.0) 32.1 G/DL (32.0-36.0) Red Cell Distribution Width 14.1 % (11.6-14.8) 13.8 % (11.6-14.8) Platelet Count 134 K/UL (150-450) 134 K/UL (150-450) Mean Platelet Volume 6.0 FL (6.5-10.1) 6.3 FL (6.5-10.1) Neutrophils (%) (Auto) 73.5 % (45.0-75.0) 63.2 % (45.0-75.0) Lymphocytes (%) (Auto) 15.8 % (20.0-45.0) 25.7 % (20.0-45.0) Monocytes (%) (Auto) 10.1 % (1.0-10.0) 9.5 % (1.0-10.0) Eosinophils (%) (Auto) 0.1 % (0.0-3.0) 0.3 % (0.0-3.0) Basophils (%) (Auto) 0.5 % (0.0-2.0) 1.3 % (0.0-2.0) Sodium Level 141 MMOL/L (136-145) 138 MMOL/L (136-145) Potassium Level 4.6 MMOL/L (3.5-5.1) 4.5 MMOL/L (3.5-5.1) Chloride Level 105 MMOL/L (98-107) 104 MMOL/L (98-107) Carbon Dioxide Level 29 MMOL/L (21-32) 28 MMOL/L (21-32) Anion Gap 7 mmol/L (5-15) 7 mmol/L (5-15) Blood Urea Nitrogen 29 mg/dL (7-18) 18 mg/dL (7-18) Creatinine 1.7 MG/DL (0.55-1.30) 1.5 MG/DL (0.55-1.30) Estimat Glomerular Filtration Rate 40.5 mL/min (>60) 46.8 mL/min (>60) Glucose Level 72 MG/DL (74-106) 88 MG/DL (74-106) Hemoglobin A1c 6.7 % (4.3-6.0) Uric Acid 6.4 MG/DL (2.6-7.2) 5.5 MG/DL (2.6-7.2) Calcium Level 8.9 MG/DL (8.5-10.1) 8.7 MG/DL (8.5-10.1) Phosphorus Level 2.8 MG/DL (2.5-4.9) 2.5 MG/DL (2.5-4.9) Magnesium Level 1.3 MG/DL (1.8-2.4) 2.0 MG/DL (1.8-2.4) Iron Level 43 ug/dL (50-175) Total Iron Binding Capacity 211 ug/dL (250-450) Percent Iron Saturation 20 % (15-50) Unsaturated Iron Binding 168 ug/dL (112-346) Ferritin 158 NG/ML (8-388) Total Bilirubin 0.8 MG/DL (0.2-1.0) 0.9 MG/DL (0.2-1.0) Gamma Glutamyl Transpeptidase 10 U/L (5-85) Aspartate Amino Transf (AST/SGOT) 23 U/L (15-37) 18 U/L (15-37) Alanine Aminotransferase (ALT/SGPT) 26 U/L (12-78) 19 U/L (12-78) Alkaline Phosphatase 60 U/L (46-116) 63 U/L (46-116) Total Creatine Kinase 38 U/L (26-308) Troponin I 0.034 ng/mL (0.000-0.056) C-Reactive Protein, Quantitative 3.6 mg/dL (0.00-0.90) 4.7 mg/dL (0.00-0.90) Pro-B-Type Natriuretic Peptide 419 pg/mL (0-125) 359 pg/mL (0-125) Total Protein 6.6 G/DL (6.4-8.2) 6.9 G/DL (6.4-8.2) Albumin 3.0 G/DL (3.4-5.0) 3.0 G/DL (3.4-5.0) Globulin 3.6 g/dL 3.9 g/dL Albumin/Globulin Ratio 0.8 (1.0-2.7) 0.8 (1.0-2.7) Triglycerides Level 111 MG/DL (30-150) Cholesterol Level 91 MG/DL (< 200) LDL Cholesterol 44 mg/dL (<100) HDL Cholesterol 29 MG/DL (40-60) Cholesterol/HDL Ratio 3.1 (3.3-4.4) Vitamin B12 Level 295 PG/ML (193-986) Folate 6.1 NG/ML (8.6-58.9) Thyroid Stimulating Hormone (TSH) 0.121 uiU/mL (0.358-3.740) Hepatitis A IgM Antibody Negative (Negative) Hepatitis B Surface Antigen Negative (Negative) Hepatitis B Core IgM Antibody Negative (Negative) Hepatitis C Antibody <0.1 s/co ratio HIV (1&2) Antibody Rapid Negative (NEGATIVE) Stool Occult Blood Negative (NEGATIVE) Height (Feet): 5 Height (Inches): 7.00 Weight (Pounds): 173 Objective Physical Exam: Vitals: reviewed General: NAD HEENT: nc, at Neck: supple Chest: clear breath sounds bilaterally Cardiovascular: RRR, no s3, s4 Abdomen: soft, nontender, nd Extremities: no cce, normal range of motion Neuro: alert and oriented Tony Melo MD May 01, 2020 11:10
--- NOTE | 2020-05-01 11:14 | NUR ---
NURSE NOTES: Report given to AMPARO Potter from [facility]. Left a message with family member, Regan Dougherty.
--- NOTE | 2020-05-01 11:53 | General Progress Note ---
Assessment/Plan Problem List: (1) COVID-19 ICD Codes: U07.1 - COVID-19 SNOMED: 694852421 (2) Renal failure (ARF), acute on chronic ICD Codes: N17.9 - Acute kidney failure, unspecified; N18.9 - Chronic kidney disease, unspecified SNOMED: 401271432 (3) DESIREE (acute kidney injury) ICD Codes: N17.9 - Acute kidney failure, unspecified SNOMED: 8500035, 28651260 (4) Anemia ICD Codes: D64.9 - Anemia, unspecified SNOMED: 349315576 (5) Dehydration ICD Codes: E86.0 - Dehydration SNOMED: 35500820 Status: progressing Assessment/Plan: stable H&H neg stool ob on ppi will hold GI procedures for now Subjective ROS Limited/Unobtainable: No Allergies: Coded Allergies: No Known Allergies (Unverified , 04/28/20) Objective Last 24 Hour Vital Signs Date Time Temp Pulse Resp B/P (MAP) Pulse Ox O2 Delivery O2 Flow Rate FiO2 05/01/20 09:00 Room Air 05/01/20 08:48 62 129/60 05/01/20 08:00 98.2 57 19 129/60 (83) 95 05/01/20 04:00 98.8 69 22 129/76 (93) 95 05/01/20 00:00 98.1 64 18 125/79 (94) 94 04/30/20 21:00 Room Air 04/30/20 20:00 97.9 64 18 124/74 (91) 94 04/30/20 16:00 97.7 57 18 134/68 (90) 94 04/30/20 12:00 98.1 64 18 142/79 (100) 96 Intake and Output 04/30/20 05/01/20 19:00 07:00 Intake Total 555 ml 500 ml Balance 555 ml 500 ml Intake Oral 480 ml 240 ml IV Total 75 ml Other 260 ml # Voids 2 # Bowel Movements 2 3 Height (Feet): 5 Height (Inches): 7.00 Weight (Pounds): 173 General Appearance: no apparent distress EENT: normal ENT inspection Neck: supple Cardiovascular: normal rate Respiratory/Chest: decreased breath sounds Abdomen: normal bowel sounds, non tender, soft Extremities: non-tender Hossein Friedman MD May 01, 2020 11:53
[2020-05-01 12:00] VITALS: BP 131/63
--- NOTE | 2020-05-01 12:05 | Infectious Diseases Prog Note ---
Assessment/Plan Assessment/Plan IMPRESSION: Low-grade fever resolved Pyuria. So far, urine culture negative. Has recent history of COVID. Acute renal failure, Chronic kidney disease, GI bleeding, Hypertension, MRSA carrier, BPH, depression, RECOMMENDATION: Agree with discharge Subjective ROS Limited/Unobtainable: Yes Constitutional: Reports: no symptoms Respiratory: Reports: no symptoms Gastrointestinal/Abdominal: Reports: no symptoms Genitourinary: Reports: no symptoms Allergies: Coded Allergies: No Known Allergies (Unverified , 04/28/20) Objective Vital Signs Last 24 Hour Vital Signs Date Time Temp Pulse Resp B/P (MAP) Pulse Ox O2 Delivery O2 Flow Rate FiO2 05/01/20 09:00 Room Air 05/01/20 08:48 62 129/60 05/01/20 08:00 98.2 57 19 129/60 (83) 95 05/01/20 04:00 98.8 69 22 129/76 (93) 95 05/01/20 00:00 98.1 64 18 125/79 (94) 94 04/30/20 21:00 Room Air 04/30/20 20:00 97.9 64 18 124/74 (91) 94 04/30/20 16:00 97.7 57 18 134/68 (90) 94 Height (Feet): 5 Height (Inches): 7.00 Weight (Pounds): 173 General Appearance: no acute distress HEENT: mucous membranes moist Respiratory/Chest: lungs clear Cardiovascular: normal rate Abdomen: soft, non tender Extremities: no edema Neurologic/Psychiatric: alert, responsive Microbiology Date/Time Source Procedure Growth Status 04/28/20 14:10 Nasal Nares MRSA Culture - Final Staphylococcus Aureus - Mrsa Complete 04/29/20 08:00 Rectum VRE Culture - Final NO VANCOMYCIN RESISTANT ENTEROCOCCUS ... Complete 04/28/20 14:10 Rectum - Final NO CARBAPENEM-RESISTANT ENTEROBACTERI... Complete Current Medications Medications (Trade) Dose Ordered Sig/Jey Route PRN Reason Start Time Stop Time Status Last Admin Dose Admin Acetaminophen (Tylenol) 500 mg Q4H PRN ORAL Temp >100.5 04/28/20 21:45 05/28/20 21:44 04/28/20 21:42 Acetaminophen (Tylenol) 500 mg Q4H PRN ORAL Mild Pain (Pain Scale 1-3) 04/29/20 17:54 05/29/20 17:53 Amlodipine Besylate (Norvasc) 2.5 mg DAILY ORAL 05/01/20 09:00 05/31/20 08:59 05/01/20 08:48 Atorvastatin Calcium (Lipitor) 40 mg BEDTIME ORAL 04/28/20 21:00 07/27/20 20:59 04/30/20 21:05 Docusate Sodium (Colace) 100 mg THREE TIMES A DAY ORAL 04/28/20 18:00 05/28/20 17:59 05/01/20 08:49 Folic Acid (Folate) 2 mg DAILY ORAL 05/01/20 09:00 05/30/20 08:59 05/01/20 08:49 Hydralazine HCl (Apresoline) 25 mg Q4H PRN ORAL bp over 160 syst 04/28/20 16:45 07/27/20 16:44 Ondansetron HCl (Zofran) 4 mg Q6H PRN IVP Nausea & Vomiting 04/28/20 16:35 05/28/20 16:34 Pantoprazole (Protonix) 40 mg EVERY 12 HOURS IVP 04/28/20 21:00 05/28/20 20:59 05/01/20 08:49 Tamsulosin HCl (Flomax) 0.4 mg QHS ORAL 04/28/20 21:00 05/28/20 20:59 04/30/20 21:05 Gato Michael MD May 01, 2020 12:05
--- NOTE | 2020-05-01 13:43 | Nephrology Progress Note ---
Assessment/Plan Problem List: (1) DESIREE (acute kidney injury) Assessment: Serum creatinine is lowering (2) Renal failure (ARF), acute on chronic (3) COVID-19 (4) Dehydration (5) Anemia Assessment Renal failure most likely acute on chronic Contributors to chronic kidney disease are diabetes mellitus and hypertension Patient is being admitted with GI bleed Evidence of UTI COVID-19 positive Hypertension Diabetes mellitus History of psych disease Plan Renal parameters are stable as of yesterday. Stable for discharge from renal standpoint of view. Started on soft diet Will decrease IV fluids Will adjust blood pressure medication Previously: Monitor for further upper GI bleed, Monitor H&H. Magnesium sulfate supplement intravenously 4 g given today IV Protonix Slow hydration Keep the blood pressure blood sugar in check Avoid nephrotoxic's Monitor renal parameters Urine studies Antibiotics for UTI Per orders Subjective ROS Limited/Unobtainable: No Interval Events/Complaints Seen at 9:15 AM late entry Objective Objective Last 24 Hour Vital Signs Date Time Temp Pulse Resp B/P (MAP) Pulse Ox O2 Delivery O2 Flow Rate FiO2 05/01/20 12:00 97.9 59 19 131/63 (85) 96 05/01/20 09:00 Room Air 05/01/20 08:48 62 129/60 05/01/20 08:00 98.2 57 19 129/60 (83) 95 05/01/20 04:00 98.8 69 22 129/76 (93) 95 05/01/20 00:00 98.1 64 18 125/79 (94) 94 04/30/20 21:00 Room Air 04/30/20 20:00 97.9 64 18 124/74 (91) 94 04/30/20 16:00 97.7 57 18 134/68 (90) 94 Intake and Output 04/30/20 05/01/20 19:00 07:00 Intake Total 555 ml 500 ml Balance 555 ml 500 ml Intake Oral 480 ml 240 ml IV Total 75 ml Other 260 ml # Voids 2 # Bowel Movements 2 3 No labs drawn today Height (Feet): 5 Height (Inches): 7.00 Weight (Pounds): 173 General Appearance: no apparent distress Objective No change Christophe Mccray MD May 01, 2020 13:43
--- NOTE | 2020-05-01 13:50 | NUR ---
NURSE NOTES: Patient was discharged to [facility] at 1310. Discharge paper works and inventory signed by patient. No missing belongings noted. No c/o any discomfort or pain upon discharge. IV line and ID band removed. Left in stable condition accompanied by ambulance personnel. BP: 133/79 RR: 16 HR: 66 T:98.0
--- NOTE | 2020-05-02 23:27 | CDS Physician Query ---
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 The patient with coffee-ground emesis at the custodial. The patient is also COVID positive from the custodial." ASSESSMENT/PLAN: Acute renal failure, Coffee-ground emesis, GI bleed,UTI, Positive COVID, positive pneumonia as well. Clinical Finding Show: 04/28 04/29 04/30 11:52 04:00 05:00 Creatinine 2.1 1.7 1.5 BUN 40 29 18 GFR 31.8 40.5 46.8 Medication: Sodium Chloride (04/28) Please Clarify the type of renal failure below: Etiology [*] Acute Renal Failure w/ Tubular Necrosis [] Acute Renal Failure w/ Cortical Necrosis [] Acute Renal Failure w/ Medullary Necrosis [] Acute Renal Failure (unspecified) [] Other: If Chronic, please specify the stage: [] CKD Stage 1 [] CKD Stage 2 [] CKD Stage 3 [] CKD Stage 4 [] CKD Stage 5 [] ESRD [*] Not applicable Present on Admission: [*] Yes [] No [] Clinically Undetermined Physician signature Date Please also document in your Progress Notes and/or Discharge Summary and indicate if the condition was present on admission. KIAN
--- NOTE | 2020-05-03 14:47 | Discharge Summary ---
Discharge Summary Discharge Summary _ DATE OF ADMISSION: 04/28/2020 DATE OF DISCHARGE: 05/01/2020 DISCHARGED BY: Dr. Eriberto Hemphill CONSULTANTS: Dr. Christophe Melo BRIEF HOSPITAL COURSE: Patient is a 64-year-old male, with history significant for non-insulin- dependent diabetes mellitus, hypertension, GERD, diabetes, major depression, schizophrenia, hyperlipidemia, BPH, and ataxia, who presented to ED for evaluation of coffee-ground emesis. Patient is unknown COVID positive from senior care. He denied any fever or chills. No cough, congestion or runny nose. Upon evaluation at ED, vital signs were stable. Patient was placed on isolation. Blood work did not show any leukocytosis. Hemoglobin and hematocrit were stable. Electrolytes were normal. BUN was elevated to 40 and creatinine to 2.1. Urinalysis showed 2+ leukocyte esterase, 60-80 urine WBC, 2- 4 urine RBC. Chest x-ray did not show any acute cardiopulmonary disease. He was given IV fluids, Protonix and Zofran. He was started empirically on IV antibiotic. He was then admitted for evaluation of GI bleed, UTI and renal failure. Patient was placed on n.p.o. He was given slow IV hydration. He was continued on proton pump inhibitors. Blood count was monitored. Kidney function was monitored. Patient most likely has acute on chronic renal failure, contributed by chronic kidney disease from diabetes mellitus and hypertension. He was placed on isolation. He was continued empirically on ceftriaxone. He developed low-grade fever. Patient had pyuria however urine culture was negative. Repeat SARS-CoV-2 PCR testing was positive. He was eventually started on soft diet. IV fluid decreased. Magnesium was low. He was given magnesium supplement IV. Platelet count down trended from 1 80-130. Hepatitis panel and HIV were negative. Anemia work-up showed iron level of 43. TIBC 211. Ferritin 158. Vitamin B12 295. Folate 6.1. He was given folic acid supplementation. Stool OB was negative. He was continued on proton pump inhibitors. Hold off on GI procedures. Hemoglobin was stable. Urine culture showed mixed gram-positive organisms. Low-grade fever resolved. Ceftriaxone was discontinued. He was eventually discharged back to senior care. FINAL DIAGNOSES: Acute on chronic renal failure Evidence of UTI Anemia due to underlying GI bleed Dehydration Thrombocytopenia Diabetes mellitus Recent history of COVID-19 positive Hypertension MRSA carrier BPH Depression DISPOSITION: DC back to SNF. DISCHARGE MEDICATIONS: Refer to Discharge Medication List. I have been assigned to complete a discharge summary on this account, I was not involved with the patient's management.--ADEBAYO Short Jacqueline Robles NP May 03, 2020 14:47
== END 2020-05-01 13:21 | DRG 377 ==
LOC: EDBD 11:04 → EMR 12:07 → 4E 12:38 → EDBEDREQ 12:49
DX: K92.2 Gastrointestinal hemorrhage, unspecified (principal); U07.1 COVID-19; N17.0 Acute kidney failure with tubular necrosis; N17.9 Acute kidney failure, unspecified; N39.0 Urinary tract infection, site not specified; K92.0 Hematemesis; E86.0 Dehydration; D69.6 Thrombocytopenia, unspecified; E11.22 Type 2 diabetes mellitus with diabetic chronic kidney disease; D50.0 Iron deficiency anemia secondary to blood loss (chronic); N18.9 Chronic kidney disease, unspecified; I12.9 Hypertensive chronic kidney disease with stage 1 through stage 4 chronic kidney disease, or unspecified chronic kidney disease; Z86.19 Personal history of other infectious and parasitic diseases; Z87.898 Personal history of other specified conditions; Z22.322 Carrier or suspected carrier of Methicillin resistant Staphylococcus aureus; N40.0 Benign prostatic hyperplasia without lower urinary tract symptoms; Z79.4 Long term (current) use of insulin; F20.9 Schizophrenia, unspecified; F32.9 Major depressive disorder, single episode, unspecified
CPT/HCPCS: 36415; 71045; 80053; 80061; 81003; 82270; 82550; 82607; 82728; 82746; 82977; 83036; 83540; 83550; 83605; 83690; 83735; 83880; 84100; 84300; 84443; 84484; 84550; 85025; 85610; 85730; 86140; 86703; 86705; 86709; 86803; 86850; 86900; 86901; 87040; 87081; 87086; 87340; 96361; 96365; 96375; 99285; J2405; J7030